=== PATIENT | female | born 1965 | race Caucasian/White ===

== ENCOUNTER 2018-12-01 09:30 | Outpatient (CLI) | payer OTHER | END 2018-12-01 09:31 | disposition home or self-care (01) | LOC: BICMAMMO 09:30 | PROVIDERS: ATTEND Family Medicine | DX: Z12.31 Encounter for screening mammogram for malignant neoplasm of breast (principal) | CPT/HCPCS: 77063; 77067 ==

== ENCOUNTER 2019-01-24 06:58 | Day surgery (SDC) | payer OTHER ==
[2019-01-23 10:31] VITALS: BMI 36.6
--- NOTE | 2019-01-23 13:47 | HP ---
HISTORY OF PRESENT ILLNESS: Ms. Tracy Ackerman is a very pleasant 53-year-old female comes with a colonoscopy for colon cancer screening. The patient has no specific GI symptom. There is no family history of colon cancer. She is adopted and she does not have any family history. ALLERGIES: NONE. SOCIAL HISTORY: The patient smokes. She also drinks alcohol socially. MEDICAL ILLNESSES: 1. Obesity. 2. Hysterectomy. PHYSICAL EXAMINATION: VITAL SIGNS: Her weight is 228 pounds. Pulse is 72, blood pressure is 140/94. HEENT: Conjunctivae clear. NECK: Supple. No adenitis or thyromegaly noted. CARDIOVASCULAR: First and second heart sounds normal. LUNGS: Clear to auscultation. ABDOMEN: Soft. No organomegaly. No tenderness. No masses. ADMITTING DIAGNOSIS: A 53-year-old female undergoing colonoscopy for colon cancer screening. Job ID: [id number]
[2019-01-24] MEDS ORDERED: PROPOFOL 200 MG/20 ML VIAL ONE (12:54)
--- NOTE | 2019-01-24 14:33 | OP ---
DATE OF PROCEDURE: 01/24/2019 PREOPERATIVE DIAGNOSIS: A 53-year-old female undergoing colonoscopy for colon cancer screening. POSTOPERATIVE DIAGNOSES: 1. Diffuse colonic diverticular disease from sigmoid colon all the way to the hepatic flexure, ascending colon. 2. Hemorrhoids. DESCRIPTION OF PROCEDURE: The patient was placed on her left lateral position and was given sedation by Anesthesia Department. A rectal exam was done before the scope was advanced into the rectum. No lesions felt on rectal exam. A Pentax video colonoscope was introduced into the rectum and advanced all the way into the cecum. The patient's exam was very difficult because of the constant coughing and gagging during the procedure. Also, she had some retained stool especially in the right colon also. The mucosa appears normal throughout the colon with normal vascular pattern. In the appendiceal orifice, ileocecal valve, and cecum, no pathology seen. Withdrawn from the cecum to the ascending colon, no pathology. She had diverticula just past the hepatic flexure, transverse colon, splenic flexure, descending colon, sigmoid colon. The retroflexion of scope in the rectum showed hemorrhoids. DISCHARGE PLANNING: This is a 53-year-old female, who came for a colonoscopy for colon cancer screening. The colonoscopy showed diffuse colonic diverticular disease and hemorrhoids. DISCHARGE RECOMMENDATIONS: 1. High-fiber diet. 2. Metamucil once a day. 3. She is advised to call me if she does have abdominal pain, hematochezia. 4. In the absence of any above symptoms, she will come back to me in 2 weeks. 5. Repeat colonoscopy in 10 years. Job ID: [id number]
== END 2019-01-24 10:15 | disposition home or self-care (01) ==
LOC: SDC 06:58
PROVIDERS: ATTEND Internal Medicine Gastroenterology
PROC: 0DJD8ZZ Inspection of Lower Intestinal Tract, Via Natural or Artificial Opening Endoscopic (ICD-10-PCS; principal; 2019-01-24)
DX: Z12.11 Encounter for screening for malignant neoplasm of colon (principal); K57.30 Diverticulosis of large intestine without perforation or abscess without bleeding; K64.9 Unspecified hemorrhoids; E66.9 Obesity, unspecified; Z68.36 Body mass index [BMI] 36.0-36.9, adult; Z90.710 Acquired absence of both cervix and uterus
CPT/HCPCS: J2704

== ENCOUNTER 2019-05-23 13:48 | Emergency (ER) | payer OTHER, SELFPAY ==
[2019-05-23] MEDS ORDERED: HYDROcodone/Acetaminophen 5/325 mg Tablet ONE (14:55)
--- NOTE | 2019-05-23 16:27 | CT ---
CT LUMBAR SPINE: Date: 05/23/19 PROVIDED CLINICAL HISTORY: Back pain. FINDINGS: Five lumbar-type vertebral bodies are present. Lumbar alignment appears normal. Vertebral body height s appear preserved. No evidence for fracture or other acute osseous abnormality. There is a broad based disc bulge and bilateral facet arthritis at L5-S1. This produces at least mode rate if not severe chronic left foraminal narrowing. There is paucity of fat within the left neural f oramen suggesting nerve root edema. No additional significant central canal or foraminal narrowing is apparent by CT. Scattered vascular calcifications are seen. IMPRESSION: Moderate-severe foraminal narrowing on the left at L5-S1 with evidence for impingement on the exiting left L5 nerve root. POS: OFF
== END 2019-05-23 15:25 | disposition home or self-care (01) ==
LOC: ERS 13:48
DX: M54.42 Lumbago with sciatica, left side (principal); E66.9 Obesity, unspecified; F17.210 Nicotine dependence, cigarettes, uncomplicated
CPT/HCPCS: 72131

== ENCOUNTER 2019-12-09 11:56 | Observation (INO) | payer OTHER, SELFPAY ==
[2019-12-09 12:43] LABS: #Eosinphils 0.2 thou/uL (0.0-0.7); #Lymphocytes 1.7 thou/uL (1.20-3.40); #Monocytes 0.5 thou/uL (0.11-0.59); #Neutrophils 5.6 thou/uL (1.40-6.50); %Basophils 0.6 % (0.0-1.0); %Eosinophils 1.9 % (0.0-10.0); %Monocytes 6.1 % (0.0-10.0); %Neutrophils 70.3 % (42.0-75.0); Hemoglobin 13.9 g/dL (12.0-16.0); Mean Corpuscular HGB CONC 34.1 g/dL (32.0-36.0); Mean Corpuscular Hemoglobin 33.5 pg (27.0-31.0); Mean Corpuscular Volume 98.4 fL (78.0-98.0); Mean Platelet Volume 8.1 fL (7.4-10.4); Platelet Count 207 thou/uL (130-400); RBC Distribution Width 13.1 % (11.5-14.5); Red Blood Cell (RBC) Count 4.16 mill/uL (4.20-5.40)
[2019-12-09 13:05] LABS: ALT (SGPT) 19 U/L (8-55); AST (SGOT) 18 U/L (5-34); Albumin 4.3 g/dL (3.5-5.0); Alkaline Phosphatase 94 U/L (40-110); Anion Gap 12 mmol/L (10-20); BUN (Urea Nitrogen) 21 mg/dL (9.8-20.1); Bilirubin, Total 0.2 mg/dL (0.2-1.2); CK (CPK) 200 U/L (29-168); Calc. Creatinine Clearance 0 mL/min (70-130); Calcium 9.4 mg/dL (7.8-10.44); Carbon Dioxide 28 mmol/L (22-29); Chloride 102 mmol/L (98-107); Estimated GFR-MDRD 81; Globulin 2.7 g/dL (2.4-3.5); Glucose 93 mg/dL (70-105); Potassium 4.1 mmol/L (3.5-5.1); Sodium 138 mmol/L (136-145)
--- NOTE | 2019-12-09 13:44 | RAD ---
Exam: Chest one view portable: HISTORY: Cough shortness of breath COMPARISON: 12/31/2014 FINDINGS: Perihilar linear and interstitial increased markings noted bilaterally concerning for some interstiti al edema. Borderline heart size. No confluent lobar pneumonia. IMPRESSION: Evidence for bilateral vascular congestion with some increased linear and interstitial opacity change s particularly in the perihilar regions more prominent than on prior study. Interstitial edema is favored over pneumonia or pneumonitis.
--- NOTE | 2019-12-09 14:26 | PDOC.FPRHP ---
- History of Present Illness Chief Complaint: Fatigue, Dyspnea on Exertion History of Present Illness: Pt is a 54 yo female with significant PMH who's chief complaint was dyspnea on exertion, RUQ pain. She notes being seen in the clinic yesterday for bright red blood per rectum and RUQ pain. Dr. Martinez performed a LORETTA in clinic revealing internal hemorrhoids. Her RUQ pain is intermittent for the last couple of months and is not associated with eating. Yesterday she had high blood pressure and was given an anti-hypertensive then told to monitor her BP' s. She checked today and they were elevated. Due to her recent visit and feeling "not herself" today she decided to come to the emergency department. On questioning she states she had R chest pain, sharp in nature, intermittent for the last couple of months. When asked about dyspnea on exertion she stated she can walk the same distance before her symptoms started. [facility] ED Course: The patient was seen in the ED and given 325mg aspirin - Allergies/Adverse Reactions Allergies Allergy/AdvReac Type Severity Reaction Status Date / Time No Known Allergies Allergy Verified 12/09/19 17:10 - Home Medications Medication Instructions Recorded Confirmed Type Aspirin 325 mg PO DAILY 12/09/19 12/09/19 History - History PMHx: Endometriosis, Internal hemorrhoids, HLD, elevated BP without a diagnosis of HTN PSHx: Hysterectomy, foot surgery, abdominal laparoscopy FHx: Adopted Social: Smokes 1/2 ppd for 30 years, drinks occassionally, no heavy drinking. Denies drug use PCP: Dr. Quiles - Review of Systems General: reports: fatigue. denies: fever/chills Eyes: denies: eye pain, vision changes ENT: denies: nasal congestion, rhinorrhea Respiratory: reports: shortness of breath. denies: cough Cardiovascular: reports: chest pain, palpitation Gastrointestinal: reports: abdominal pain, GI bleeding. denies: diarrhea, constipation Genitourinary: denies: incontinence, dysuria Skin: denies: rashes, itching Musculoskeletal: denies: pain, swelling Neurological: denies: numbness, weakness Psychological: denies: anxiety, depression - Vital signs BP: 176/114 HR: 91 RR: 18 Tmax: 98.2 Pox: 97% on RA Wt: 99.8kg - Physical Exam Constitutional: NAD, awake, alert and oriented HEENT: PERRLA, EOMI Neck: trachea midline, no JVD Chest: no-tender to palpation, no lesions Heart: RRR, normal S1/S2, no edema Lungs: CTAB, no respiratory distress, good air movement Abdomen: soft, non-tender, bowel sounds present Musculoskeletal: normal tone, ROM grossly normal Neurological: no focal deficit, CN II-XII intact Skin: no rash/lesions, capillary refill <2 seconds Heme/Lymphatic: no purpura, no petechia Psychiatric: normal mood and affect, intact recent and remote memory FMR H&P: Results - Labs Result Diagrams: 12/09/19 12:33 12/09/19 12:33 Lab results: WBC 8.0 thou/uL (4.8-10.8) 12/09/19 12:33 Hgb 13.9 g/dL (12.0-16.0) 12/09/19 12:33 Hct 40.9 % (36.0-47.0) 12/09/19 12:33 MCV 98.4 fL (78.0-98.0) H 12/09/19 12:33 Plt Count 207 thou/uL (130-400) 12/09/19 12:33 Neutrophils % 70.3 % (42.0-75.0) 12/09/19 12:33 Sodium 138 mmol/L (136-145) 12/09/19 12:33 Potassium 4.1 mmol/L (3.5-5.1) 12/09/19 12:33 Chloride 102 mmol/L (98-107) 12/09/19 12:33 Carbon Dioxide 28 mmol/L (22-29) 12/09/19 12:33 BUN 21 mg/dL (9.8-20.1) H 12/09/19 12:33 Creatinine 0.75 mg/dL (0.6-1.1) 12/09/19 12:33 Glucose 93 mg/dL (70-105) 12/09/19 12:33 Calcium 9.4 mg/dL (7.8-10.44) 12/09/19 12:33 Total Bilirubin 0.2 mg/dL (0.2-1.2) 12/09/19 12:33 AST 18 U/L (5-34) 12/09/19 12:33 ALT 19 U/L (8-55) 12/09/19 12:33 Alkaline Phosphatase 94 U/L (40-110) 12/09/19 12:33 Creatine Kinase 200 U/L (29-168) H 12/09/19 12:33 B-Natriuretic Peptide 43.6 pg/mL (0-100) 12/09/19 12:30 Serum Total Protein 7.0 g/dL (6.0-8.3) 12/09/19 12:33 Albumin 4.3 g/dL (3.5-5.0) 12/09/19 12:33 - EKG Interpretation EKG: NSR, no ST changes, T wave inversions in v1/v2 - Radiology Interpretation Chest x-ray Status: image reviewed by me Additional comment: revealed pulmonary vascular congestion FMR H&P: A/P - Problem List (1) Hypertensive urgency Current Visit: Yes Status: Acute Code(s): I16.0 - HYPERTENSIVE URGENCY (2) Pulmonary congestion Current Visit: Yes Status: Acute Code(s): R09.89 - OTH SYMPTOMS AND SIGNS INVOLVING THE CIRC AND RESP SYSTEMS (3) Dyspnea on exertion Current Visit: Yes Status: Acute Code(s): R06.09 - OTHER FORMS OF DYSPNEA (4) RUQ pain Current Visit: Yes Status: Acute Code(s): R10.11 - RIGHT UPPER QUADRANT PAIN (5) Hemorrhoid Current Visit: Yes Status: Acute Code(s): K64.9 - UNSPECIFIED HEMORRHOIDS (6) Atypical chest pain Current Visit: Yes Status: Acute Code(s): R07.89 - OTHER CHEST PAIN - Plan Pt is a 54 yo female here for: # HTN Urgency # Dyspnea on exertion/Pulmonary Congestion - trend trops - echo pending - control blood pressures - start lisinopril 10 mg, statin therapy, ASA daily - pending lipid panel # RUQ Pain - U/S pending # Atypical Chest Pain - likely MSK # Internal Hemorrhoid # Diverticulosis Likely source of GI bleed. Recently had a colonoscopy with diverticulosis - could be source. - monitor h/h in am # Hx of Endometriosis - s/p hysterectomy Fluids: SL Diet: HH VTE: Lovenox Code: Full Dispo: < 48 hr stay, tele obs FMR H&P: Upper Level - Pertinent history 54 y/o F PMHx endometriosis, HLD, obesity, tobacco abuse presents to the ED She reports she was seen yesterday in clinic and her blood pressure was elevated to the 190s-200s systolic. She went and bought a BP monitor. She took her BP today and it was 155 systolic so she came in to the ED. She reports pain between her shoulder blades this AM. It was a dull pain. She also reports RUQ abd pain and blood in her stool that started Wednesday and was BRBPR. Now the bleeding is more maroon today. She has an US scheduled for next week. She reports a sharp chest pain every once in a while as well as palpitations. She reports a little SOB today, but is still able to walk as much as normal. She does reports feeling fatigued today. She reports a colonoscopy this past May that was normal. She thinks they may have mentioned diverticula - Pertinent findings Vitals: BP: 176/114 HR: 91 RR: 18 Tmax: 98.2 Pox: 97% on RA Wt: 99.8kg PE: Gen - alert, oriented, NAD CV - no cyanosis or edema Abd - non-distended, NTTP CXR - bilateral vascular congestion, likely interstitial edema - Plan Date/Time: 12/09/19 1426 I, Patricia Clay MD, PGY-3, have evaluated this patient and agree with findings/ plan as outlined by business management intern resident. Pertinent changes/additions are listed here. Hypertensive Urgency Pt presented with BP's in 190s-200s. She has not been on antihypertensives in the past. -Obs on tele -Start on lisinopril -Check FLP and start atorvastatin -Start aspirin -Trend trops Pulmonary Edema -Will get Echo -BNP was normal and no peripheral edema RUQ pain -Check RUQ US Internal Hemorrhoids Likely cause of GI bleed, but could also be diverticulosis. Not actively bleeding at this time. -Recommend continued outpt f/u and workup Endometriosis s/p hysterectomy HLD -Check FLP and start atorvastatin Dispo: Obs on tele LOS: < 48 hours
[2019-12-09] MEDS ORDERED: Lisinopril 10 MG TAB PO SCH (15:58)
[2019-12-09 16:05] LABS: Troponin I 0.022 ng/mL (< 0.028)
[2019-12-09] MEDS ORDERED: Aspirin 325 mg Enteric Coated Tablet PO SCH (16:15)
[2019-12-09 17:13] VITALS: BMI 37.3
[2019-12-09 18:57] LABS: Troponin I Less than 0.010 ng/mL (< 0.028)
[2019-12-09] MEDS ORDERED: Acetaminophen 325 MG TAB PO PRN (19:28)
[2019-12-09] MEDS: Atorvastatin Calcium 40 MG TAB PO SCH (20:40)
[2019-12-09] MEDS ORDERED: Acetaminophen 325 MG/10.15 ML UDCUP PO PRN (21:57)
[2019-12-09] MEDS ORDERED: Ibuprofen 600 MG TAB PO PRN (21:57)
[2019-12-09] MEDS ORDERED: Acetaminophen 500 MG TAB PO PRN (22:57)
--- NOTE | 2019-12-09 23:47 | HP ---
I have discussed the case with Dr. Winter. I have examined the patient. I agree with Dr. Winter's assessment and plan. HISTORY OF PRESENT ILLNESS: Briefly, Ms. Ackerman is a 54-year-old white female patient who is a heavy smoker, at least 40-pack year and has a history of intermittent hypertension for which she has not taken medications. She was seen in the clinic on Wednesday with a systolic blood pressure of 190. She was instructed to get a home recorder which she did. She went to work today and started "feeling funny." She was having some discomfort just right of the midline on her right shoulder posteriorly. She presented to the ER for evaluation. Her blood pressure in the ER was initially 176/114. Her heart rate was 90, respirations 18, her room air pulse ox was 97%. She denied any chest pain, although she did have some dyspnea on exertion intermittently during the last 4 days. PHYSICAL EXAMINATION: EAR, NOSE, AND THROAT: No erythema or exudate. NECK: Supple. CARDIAC: Her heart rhythm is regular. There is an S4 apical gallop. No murmur or rub noted. LUNGS: Diminished, but clear without rhonchi or wheezes. She is in no respiratory distress. ABDOMEN: Flat and soft without guarding or rebound. NEUROLOGIC: No focal deficits. LABORATORY DATA: CBC; white count is 8000, hemoglobin 13.9, hematocrit 40.9 with an MCV of 98. Chemistry; sodium 138, potassium 4.1, chloride 102, bicarb 28, BUN 21, and creatinine 0.75 with GFR of 81. Her troponins are negative with less than 0.01 and 4-6 hours later 0.022. Her BNP is 43. EKG shows no acute ischemic changes. ASSESSMENT: 1. Uncontrolled asymptomatic hypertension. 2. Heavy smoker with likely chronic obstructive pulmonary disease. 3. Dyspnea on exertion, new onset, need to consider multiple etiologies including heart failure and chronic obstructive pulmonary disease. PLAN: Admit. Workup with echo. Trend troponins. Possible stress test depending on results of echo and proceed. Job ID: [id number]
[2019-12-10 05:12] LABS: Anion Gap 10 mmol/L (10-20); BUN (Urea Nitrogen) 18 mg/dL (9.8-20.1); Calc. Creatinine Clearance 163 mL/min (70-130); Calcium 9.2 mg/dL (7.8-10.44); Carbon Dioxide 28 mmol/L (22-29); Cardiac Risk 3.8 (Less than 4.5); Chloride 105 mmol/L (98-107); Cholesterol 192 mg/dl (< 200 Desired); Estimated GFR-MDRD Greater than 90; Glucose 91 mg/dL (70-105); HDL Cholesterol 50 mg/dL (>60 Neg Risk); LDL Cholesterol, Calculated 121 mg/dL; Potassium 4.4 mmol/L (3.5-5.1); Sodium 139 mmol/L (136-145); Triglycerides 104 mg/dL (Less than 150)
--- NOTE | 2019-12-10 05:27 | PDOC.FM ---
- Subjective Subjective: Patient states that she had one episode of chest "discomfort" overnight, describes this sensation as "bothersome" but denies pain. Denies any nausea/ vomiting, heartburn, or abdominal pain. Patient thinks overall she is feeling much better. Her headache has resolved. - Objective MAR Reviewed: Yes Vital Signs & Weight: Vital Signs (12 hours) Temp Pulse Resp BP BP Pulse Ox 12/09/19 23:19 98.2 F 68 16 143/71 H 95 12/09/19 20:55 96 12/09/19 19:15 98.7 F 80 16 141/65 H 141/65 H 96 Weight Weight 101.877 kg I&O: 12/08/19 12/09/19 12/10/19 06:59 06:59 06:59 Intake Total 790 Output Total 650 Balance 140 Result Diagrams: 12/09/19 12:33 12/10/19 04:25 Phys Exam - Physical Examination Constitutional: NAD HEENT: moist MMs Neck: no JVD, supple, full ROM Respiratory: no wheezing, no rhonchi, clear to auscultation bilateral Cardiovascular: RRR, no significant murmur Gastrointestinal: soft, non-tender, positive bowel sounds Musculoskeletal: no edema, pulses present Neurological: normal sensation, moves all 4 limbs Psychiatric: normal affect, A&O x 3 Skin: no rash Dx/Plan (1) Atypical chest pain Code(s): R07.89 - OTHER CHEST PAIN Status: Acute (2) Dyspnea on exertion Code(s): R06.09 - OTHER FORMS OF DYSPNEA Status: Acute (3) Hemorrhoid Code(s): K64.9 - UNSPECIFIED HEMORRHOIDS Status: Acute (4) Hypertensive urgency Code(s): I16.0 - HYPERTENSIVE URGENCY Status: Acute (5) Pulmonary congestion Code(s): R09.89 - OTH SYMPTOMS AND SIGNS INVOLVING THE CIRC AND RESP SYSTEMS Status: Acute (6) RUQ pain Code(s): R10.11 - RIGHT UPPER QUADRANT PAIN Status: Acute - Plan Plan: Pt is a 54 yo female here with atypical chest pain is admitted for: # HTN Urgency # Dyspnea on exertion/Pulmonary Congestion - Trops: <.01 - .02 - <.01 - Echo pending - start Lisinopril 10 mg, Atorvastatin 40 mg, ASA daily - FLP: total chol 192, HDL 50, LDL 121 # RUQ Pain - U/S pending # Atypical Chest Pain - likely MSK in origin # Internal Hemorrhoid # Diverticulosis - Likely source of GI bleed. Recently had a colonoscopy with diverticulosis - could be source. - monitor h/h in am # Tobacco Abuse - 40+ pk year smoker - consider COPD changes # Hx of Endometriosis - s/p hysterectomy Fluids: SL Diet: HH VTE: Lovenox Code: Full Dispo: Stable, admitted to observation on telemetry unit. RUQ U/S and ECHO pending. Anticipate discharge in < 48 hr.
[2019-12-10] MEDS: Aspirin 325 mg Enteric Coated Tablet PO SCH (07:56)
--- NOTE | 2019-12-10 08:24 | ULT ---
RIGHT UPPER QUADRANT ULTRASOUND: HISTORY: Right upper quadrant pain. FINDINGS: There is somewhat coarse liver echogenicity, evidence for some fatty change. No evidence of gallstone s, wall thickening, edema or pericholecystic fluid. The common bile duct is 0.6 cm. The visualized pa ncreas and right kidney are unremarkable. Negative Chua sign. IMPRESSION: Minimally coarse liver echogenicity. No evidence of gallstones. Borderline sized common bile duct at 0.6 cm. POS: [facility]
[2019-12-10] MEDS ORDERED: Lisinopril 10 MG TAB PO SCH ×2 (09:00→23:45)
[2019-12-10] MEDS ORDERED: hydrALAZINE 20 MG/ML VIAL SLOW IVP SCH (12:15)
[2019-12-10] MEDS: Enoxaparin Sodium 40 MG/0.4 ML SYRINGE SC SCH (13:08)
--- NOTE | 2019-12-10 17:59 | PRG ---
DATE OF SERVICE: 12/10/2019 ADDENDUM: This is an addendum to the note of Dr. Itzel Mata. Ms. Ackerman looks and feels better this morning. Her right upper quadrant ultrasound did reveal fatty liver. Her chest x-ray as stated yesterday was consistent with mild pulmonary edema. We are still awaiting the reports of echocardiogram. In the event, clinically she is improved. Possible Cardiology consult to follow if echo abnormal. Job ID: [id number]
[2019-12-10] MEDS: Atorvastatin Calcium 40 MG TAB PO SCH (20:51)
[2019-12-11 04:54] LABS: Anion Gap 12 mmol/L (10-20); BUN (Urea Nitrogen) 14 mg/dL (9.8-20.1); Calc. Creatinine Clearance 154 mL/min (70-130); Calcium 9.4 mg/dL (7.8-10.44); Carbon Dioxide 27 mmol/L (22-29); Chloride 105 mmol/L (98-107); Estimated GFR-MDRD Greater than 90; Glucose 101 mg/dL (70-105); Potassium 4.1 mmol/L (3.5-5.1); Sodium 140 mmol/L (136-145)
--- NOTE | 2019-12-11 05:27 | PDOC.FM ---
- Subjective Subjective: Patient reports that she is doing well. Denies any chest discomfort overnight. Denies any hematochezia/melena since wednesday. Discussed echo results. - Objective Vital Signs & Weight: Vital Signs (12 hours) Temp Pulse Resp BP Pulse Ox 12/10/19 23:40 98.0 F 71 16 187/84 H 94 L 12/10/19 20:48 98.1 F 72 16 153/80 H 96 Weight Weight 100.425 kg I&O: 12/09/19 12/10/19 12/11/19 06:59 06:59 06:59 Intake Total 790 720 Output Total 1150 500 Balance -360 220 Result Diagrams: 12/09/19 12:33 12/11/19 04:19 EKG Reviewed by me: Yes (sinus-sinus tach, 60s-113) Phys Exam - Physical Examination Constitutional: NAD HEENT: moist MMs, sclera anicteric Neck: supple, full ROM Respiratory: no wheezing, clear to auscultation bilateral Cardiovascular: RRR, no significant murmur Gastrointestinal: soft, non-tender Musculoskeletal: no edema, pulses present Neurological: non-focal, moves all 4 limbs Lymphatic: no nodes Psychiatric: normal affect, A&O x 3 Skin: no rash, normal turgor Dx/Plan (1) Atypical chest pain Code(s): R07.89 - OTHER CHEST PAIN Status: Acute (2) Hypertensive urgency Code(s): I16.0 - HYPERTENSIVE URGENCY Status: Acute (3) RUQ pain Code(s): R10.11 - RIGHT UPPER QUADRANT PAIN Status: Acute (4) Hemorrhoid Code(s): K64.9 - UNSPECIFIED HEMORRHOIDS Status: Chronic (5) Tobacco abuse Code(s): Z72.0 - TOBACCO USE Status: Chronic (6) Diverticulosis Code(s): K57.90 - DVRTCLOS OF INTEST, PART UNSP, W/O PERF OR ABSCESS W/O BLEED Status: Chronic - Plan Plan: Pt is a 54F admitted to obs for atypical chest pain # Atypical Chest Pain -trop neg x 3 - likely MSK in origin - echo: 50-55%, left ventricle slightly elevated in size, left atrium moderately to severely dilated, trace mitral and tricuspid regurgitation # HTN Urgency # Dyspnea on exertion/Pulmonary Congestion - Trops: <.01 - .02 - <.01 - Echo: see above - lisinopril increased to 20mg qd today; continue Atorvastatin 40 mg, ASA daily - FLP: total chol 192, HDL 50, LDL 121 # RUQ Pain - U/S neg # Internal Hemorrhoid # Diverticulosis - Likely source of GI bleed. Recently had a colonoscopy with diverticulosis - could be source. - h/h stable - no reported hematochezia/melena since wednesday # Tobacco Abuse - 40+ pk year smoker - encourage cessation # Hx of Endometriosis - s/p hysterectomy Fluids: SL Diet: HH VTE: Lovenox Code: Full Dispo: Stable, admitted to observation on telemetry unit. As echo negative, trops negative, will likely d/c today Addendum - Attending - Attending Attestation Date/Time: 12/11/19 9227 I personally evaluated the patient and discussed the management with Dr. Mantilla I agree with the History, Examination, Assessment and Plan documented above with any addition or exceptions noted below. Patient counseled tobacco cessation encourage close outpt f/u and will need outpatient risk stratification for ASCAD with Cardiology
[2019-12-11] MEDS: Aspirin 325 mg Enteric Coated Tablet PO SCH (07:48)
[2019-12-11] MEDS: Enoxaparin Sodium 40 MG/0.4 ML SYRINGE SC SCH (07:48)
[2019-12-11] MEDS ORDERED: Lisinopril 20 MG TAB PO SCH (09:00)
[2019-12-11 12:09] VITALS: BP 137/64; TEMP 97.9
--- NOTE | 2019-12-12 06:31 | DIS ---
DATE OF ADMISSION: 12/09/2019 DATE OF DISCHARGE: 12/11/2019 ADMITTING RESIDENT: Saulo Winter DO ADMITTING PHYSICIAN: Arslan Brenner MD DISCHARGE RESIDENT: Delmy Mantilla MD DISCHARGE ATTENDING: Blaze Jones MD. CONSULTATIONS: None. PROCEDURES: None. IMAGING: EF of 50% to 55%. Left ventricular size is mildly increased. [id number] dilated left atrium. No evidence of mitral valve stenosis. Trace mitral regurgitation. Structurally normal aortic valve with no significant stenosis or regurgitation. Trace tricuspid regurgitation. PRIMARY DIAGNOSES: Atypical chest pain versus exertional dyspnea, hypertensive urgency, right upper quadrant pain. SECONDARY DIAGNOSES: Internal hemorrhoids, diverticulosis, tobacco use, history of endometriosis. DISCHARGE MEDICATIONS: 1. Atorvastatin 40 mg p.o. t.i.d. x30 tablets. 2. Lisinopril 20 mg p.o. b.i.d. x30 tablets. DISCONTINUED MEDICATIONS: 1. Aspirin daily. 2. Hydralazine 5 mg IVP p.r.n. 3. Ibuprofen p.r.n. 4. Lisinopril 10mg daily. HISTORY OF PRESENT ILLNESS/HOSPITAL COURSE: The patient is a 54-year-old female who had a past medical history of hyperlipidemia, internal hemorrhoids, diverticulosis, endometriosis, presented to the ER with a chief complaint of dyspnea on exertion , chest discomfort, right upper quadrant pain. When she presented to the ER, her presenting blood pressure was 176/114. Lisinopril was started for her hypertensive urgency. Her troponins were trended, which were negative x3 and she was started on a statin. She underwent an echocardiogram, see above. On the day of discharge, the patient had denied any further chest discomfort and she remained in sinus rhythm throughout her time on telemetry. Her echocardiogram did not reveal any systolic or diastolic heart failure. We recommended to patient that she follow up outpatient with her PCP for an outpatient stress test. For her right upper quadrant pain, an abdominal ultrasound was performed that demonstrated minimally coarse liver echogenicity. No evidence of gallstones. Borderline sized common bile duct at 0.6 cm. The patient recently had a colonoscopy that demonstrated diverticulosis and a recent digital exam in clinic that demonstrated internal hemorrhoids, which were likely the cause of her bright red blood per rectum. She did not have any reported bright red blood per rectum since this past Wednesday. The patient is a tobacco user with reported a half pack per day smoking use. The patient was counseled on the day of discharge for smoking cessation, and she reported that she is ready. She was counseled on taking up a nicotine patch at the store and utilizing nicotine gum as needed. DISPOSITION: Stable. DISCHARGE INSTRUCTIONS: 1. Location: Home. 2. Diet: Heart healthy. 3. Activity: As tolerated. 4. Follow up with primary care provider at [facility] within 1 week. 5. The patient was recommended to request an outpatient stress test on followup and further counseling on tobacco cessation as needed. Job ID: [id number] [facility]ITAL[facility]
== END 2019-12-11 12:55 | disposition home or self-care (01) ==
LOC: ERS 11:56 → 2SW 16:32
PROVIDERS: ADMIT Family Medicine; ATTEND Family Medicine
DX: I16.0 Hypertensive urgency (principal); K76.0 Fatty (change of) liver, not elsewhere classified; K64.8 Other hemorrhoids; K57.90 Diverticulosis of intestine, part unspecified, without perforation or abscess without bleeding; F17.210 Nicotine dependence, cigarettes, uncomplicated; I10 Essential (primary) hypertension; E78.5 Hyperlipidemia, unspecified; J81.1 Chronic pulmonary edema; Z79.82 Long term (current) use of aspirin; Z79.899 Other long term (current) drug therapy
CPT/HCPCS: 36415; 71045; 76705; 80048; 80053; 80061; 82550; 83880; 84484; 85025; 85379; 93005; 93306; 94760; 96372; 96374; G0378; J0360; J1650

== ENCOUNTER 2020-07-05 10:30 | Emergency (ER) | payer OTHER ==
[~2020-07-05 10:30] MED LIST: Iopamidol-370 76% 500 ML 1 ML ONE
[2020-07-05 10:57] LABS: #Eosinphils 0.1 thou/uL (0.0-0.7); #Lymphocytes 1.1 thou/uL (1.20-3.40); #Neutrophils 8.3 thou/uL (1.40-6.50); %Basophils 0.4 % (0.0-1.0); %Eosinophils 1.3 % (0.0-10.0); %Lymphocytes 10.6 % (21.0-51.0); %Monocytes 9.2 % (0.0-10.0); %Neutrophils 78.5 % (42.0-75.0); Hemoglobin 11.5 g/dL (12.0-16.0); Mean Corpuscular HGB CONC 30.4 g/dL (32.0-36.0); Mean Corpuscular Hemoglobin 26.6 pg (27.0-31.0); Mean Corpuscular Volume 87.5 fL (78.0-98.0); Mean Platelet Volume 7.5 fL (7.4-10.4); Platelet Count 381 thou/uL (130-400); RBC Distribution Width 15.5 % (11.5-14.5); Red Blood Cell (RBC) Count 4.34 mill/uL (4.20-5.40); White Blood Cell (WBC) Count 10.6 thou/uL (4.8-10.8)
[2020-07-05 11:18] LABS: ALT (SGPT) 12 U/L (8-55); AST (SGOT) 10 U/L (5-34); Albumin 3.7 g/dL (3.5-5.0); Alkaline Phosphatase 84 U/L (40-110); Anion Gap 16 mmol/L (10-20); BUN (Urea Nitrogen) 12 mg/dL (9.8-20.1); Bilirubin, Total Less than 0.2 mg/dL (0.2-1.2); Calc. Creatinine Clearance 0 mL/min (70-130); Calcium 9.3 mg/dL (7.8-10.44); Carbon Dioxide 24 mmol/L (22-29); Chloride 100 mmol/L (98-107); Estimated GFR-MDRD 86; Globulin 3.1 g/dL (2.4-3.5); Glucose 118 mg/dL (70-105); Potassium 4.2 mmol/L (3.5-5.1); Protein, Total 6.8 g/dL (6.0-8.3); Sodium 136 mmol/L (136-145)
[2020-07-05 12:21] LABS: PTT 29.8 sec (22.9-36.1)
[2020-07-05] MEDS ORDERED: Ondansetron PF 4 MG/2 ML Vial ONE (12:47)
--- NOTE | 2020-07-05 13:30 | CT ---
CT of theabdomen and pelvis: 07/05/2020 COMPARISON:03/20/2013 HISTORY:GI bleeding, pain TECHNIQUE: Serial axial CT imaging at5 mm intervals from thelung bases through pubic symphysis with I V contrast. Coronal and sagittal reformatted imaging obtained. Findings:There are nonspecific increased linear interstitial densities noted within the imaged portio ns of the left lower lobe with probable associated mild bronchiectasis suggesting chronic interstitial disease. No free intraperitoneal air is noted. There is minimal prominence of the intrahepatic biliary structures. Liver, gallbladder, spleen, pancr eas, adrenal glands, and kidneys otherwise unremarkable. There is extensive abnormal wall thickening of the colon with prominent pericolonic fat stranding/inf lammatory change involving the colon from the level of the mid descending colon through the level of the rectum. No evidence for bowel obstruction. Small sliding-type hiatal hernia present. Multifocal atherosclerotic calcification of the infrarenal abdominal aorta noted. The celiac axis, raines perior mesenteric artery, and inferior mesenteric artery are patent. No lymphadenopathy in the abdomen/pelvis. No acute osseous abnormality. There is disc space narrowing with degenerative endplate change and fac et hypertrophy at the lumbosacral junction. Impression:Prominent pericolonic fat stranding and diffuse wall thickening of the colon from the leve l of the mid descending colon through the rectum, evidence of nonspecific colitis. This could be on the basis of diverticulitis, inflammatory bowel disease, diffuse infectious colitis, or less likely, ischemic colitis. GI consultation advised.
== END 2020-07-05 14:26 | disposition home or self-care (01) ==
LOC: ERS 10:30
DX: K52.9 Noninfective gastroenteritis and colitis, unspecified (principal); F17.210 Nicotine dependence, cigarettes, uncomplicated
CPT/HCPCS: 36415; 74177; 80053; 82274; 83630; 83690; 85025; 85610; 85730; 87045; 87046; 87324; 87328; 87329; 87427; 87449; 96374; J2405; Q9967

== ENCOUNTER 2022-08-14 14:20 | Inpatient (IN) | payer OTHER ==
[2022-08-14] MEDS ORDERED: Calcium Carbonate 500 MG ChewTAB PO PRN (15:46)
[2022-08-14] MEDS ORDERED: Albuterol Sulfate 2.5 mg/3 ml Neb NEB PRN (15:49)
[2022-08-14 16:05] VITALS: BMI 38.1
[2022-08-14] MEDS: Benzonatate 100 MG CAP PO PRN (16:46)
[2022-08-14] MEDS: Acetaminophen 325 MG TAB PO PRN (16:53)
[2022-08-14 17:42] LABS: ALT (SGPT) 19 U/L (8-55); AST (SGOT) 20 U/L (5-34); Albumin 4.2 g/dL (3.5-5.0); Alkaline Phosphatase 87 U/L (40-110); Anion Gap 11 mmol/L (10-20); BUN (Urea Nitrogen) 13 mg/dL (9.8-20.1); Bilirubin, Total 0.3 mg/dL (0.2-1.2); Calc. Creatinine Clearance 164 mL/min (70-130); Calcium 9.2 mg/dL (7.8-10.44); Carbon Dioxide 25 mmol/L (22-29); Chloride 106 mmol/L (98-107); Estimated GFR 104; Globulin 3.1 g/dL (2.4-3.5); Glucose 145 mg/dL (70-105); Potassium 4.2 mmol/L (3.5-5.1); Protein, Total 7.3 g/dL (6.0-8.3); Sodium 138 mmol/L (136-145)
[2022-08-14] MEDS: Albuterol Sulfate 2.5 mg/3 ml Neb NEB SCH ×2 (18:24→23:25)
[2022-08-14 18:25] LABS: Legionella Urinary Ag Negative (Negative); Strep pneumo Urine Ag NEGATIVE (NEGATIVE)
[2022-08-14] MEDS ORDERED: Ibuprofen 600 MG TAB PO PRN (19:34)
[2022-08-14] MEDS ORDERED: Loratadine 10 MG TAB PO SCH (19:45)
[2022-08-14] MEDS: GUAIFENESIN SF SOLN 200 MG/10 ML UDCUP PO PRN (20:15)
[2022-08-15] MEDS: Acetaminophen 325 MG TAB PO PRN ×3 (00:03→19:45)
[2022-08-15] MEDS: GUAIFENESIN SF SOLN 200 MG/10 ML UDCUP PO PRN (00:04)
[2022-08-15] MEDS: Benzonatate 100 MG CAP PO PRN ×2 (00:04→18:10)
[2022-08-15] MEDS: Albuterol Sulfate 2.5 mg/3 ml Neb NEB SCH ×2 (03:46→07:01)
[2022-08-15 06:11] LABS: #Lymphocytes 1.2 thou/uL (1.20-3.40); #Monocytes 0.7 thou/uL (0.11-0.59); #Neutrophils 8.4 thou/uL (1.40-6.50); %Basophils 0.2 % (0.0-1.0); %Eosinophils 0.2 % (0.0-10.0); %Lymphocytes 11.7 % (21.0-51.0); %Monocytes 6.8 % (0.0-10.0); %Neutrophils 81.1 % (42.0-75.0); Hemoglobin 13.2 g/dL (12.0-16.0); Mean Corpuscular HGB CONC 32.6 g/dL (32.0-36.0); Mean Corpuscular Hemoglobin 33.8 pg (27.0-31.0); Mean Platelet Volume 8.5 fL (7.4-10.4); Platelet Count 206 thou/uL (130-400); RBC Distribution Width 13.9 % (11.5-14.5); White Blood Cell (WBC) Count 10.4 thou/uL (4.8-10.8)
[2022-08-15 06:24] LABS: Anion Gap 10 mmol/L (10-20); BUN (Urea Nitrogen) 15 mg/dL (9.8-20.1); Calc. Creatinine Clearance 172 mL/min (70-130); Calcium 9.5 mg/dL (7.8-10.44); Carbon Dioxide 27 mmol/L (22-29); Chloride 106 mmol/L (98-107); Estimated GFR 105; Glucose 108 mg/dL (70-105); Potassium 4.9 mmol/L (3.5-5.1); Sodium 138 mmol/L (136-145)
[2022-08-15] MEDS: Loratadine 10 MG TAB PO SCH (08:29)
[2022-08-15] MEDS: Enoxaparin Sodium 40 MG/0.4 ML SYRINGE SC SCH (08:29)
[2022-08-15] MEDS: Lisinopril 5 MG TAB PO SCH (08:29)
[2022-08-15] MEDS ORDERED: guaiFENesin ER 600 MG TAB PO SCH (09:00)
[2022-08-15] MEDS ORDERED: Azithromycin 200 MG/5 ML Oral Suspension PO SCH ×2 (09:00)
[2022-08-15] MEDS ORDERED: Dextromethorphan Polistirex 30 MG/5 ML (89 ML BOTTLE) PO PRN (09:00)
[2022-08-15] MEDS ORDERED: predniSONE 20 MG TAB PO SCH (09:00)
[2022-08-15] MEDS ORDERED: methylPREDNISolone 4 mg Tablet PO SCH (09:15)
[2022-08-15] MEDS ORDERED: guaiFENesin ER 600 MG TAB PO PRN (09:28)
[2022-08-15] MEDS ORDERED: Azithromycin 250 MG TAB PO SCH (09:30)
[2022-08-15] MEDS ORDERED: Cepastat Lozenges 1 LOZ PO PRN (19:23)
[2022-08-15] MEDS: guaiFENesin/Codeine 200 mg/20 mg 10 ml Cup PO PRN (19:45)
[2022-08-16] MEDS: guaiFENesin/Codeine 200 mg/20 mg 10 ml Cup PO PRN ×4 (05:34→22:52)
[2022-08-16 06:30] LABS: #Basophils 0.1 thou/uL (0.0-0.2); #Lymphocytes 2.2 thou/uL (1.20-3.40); #Monocytes 0.7 thou/uL (0.11-0.59); #Neutrophils 7.5 thou/uL (1.40-6.50); %Basophils 0.6 % (0.0-1.0); %Eosinophils 0.4 % (0.0-10.0); %Lymphocytes 20.8 % (21.0-51.0); %Monocytes 6.8 % (0.0-10.0); %Neutrophils 71.3 % (42.0-75.0); Hemoglobin 13.1 g/dL (12.0-16.0); Mean Corpuscular HGB CONC 32.3 g/dL (32.0-36.0); Mean Platelet Volume 8.6 fL (7.4-10.4); Platelet Count 213 thou/uL (130-400); Red Blood Cell (RBC) Count 3.84 mill/uL (4.20-5.40); White Blood Cell (WBC) Count 10.6 thou/uL (4.8-10.8)
[2022-08-16 06:41] LABS: Anion Gap 13 mmol/L (10-20); BUN (Urea Nitrogen) 19 mg/dL (9.8-20.1); Calc. Creatinine Clearance 161 mL/min (70-130); Calcium 9.1 mg/dL (7.8-10.44); Carbon Dioxide 26 mmol/L (22-29); Chloride 105 mmol/L (98-107); Estimated GFR 104; Glucose 89 mg/dL (70-105); Potassium 4.4 mmol/L (3.5-5.1); Sodium 140 mmol/L (136-145)
[2022-08-16] MEDS: Loratadine 10 MG TAB PO SCH (08:26)
[2022-08-16] MEDS: Azithromycin 250 MG TAB PO SCH (08:29)
[2022-08-16] MEDS: Enoxaparin Sodium 40 MG/0.4 ML SYRINGE SC SCH (08:29)
[2022-08-16] MEDS ORDERED: Azithromycin 200 MG/5 ML Oral Suspension PO SCH (09:00)
[2022-08-16] MEDS ORDERED: Furosemide 20 MG TAB PO SCH (10:30)
[2022-08-16] MEDS: Lisinopril 5 MG TAB PO SCH (11:12)
[2022-08-16] MEDS ORDERED: Mometasone/Formoterol 60 PUFF AER INH SCH (18:30)
[2022-08-16] MEDS: Mometasone/Formoterol 60 PUFF AER INH SCH (18:47)
[2022-08-17] MEDS: guaiFENesin/Codeine 200 mg/20 mg 10 ml Cup PO PRN ×3 (05:34→23:30)
[2022-08-17 06:52] LABS: #Eosinphils 0.1 thou/uL (0.0-0.7); #Lymphocytes 2.3 thou/uL (1.20-3.40); #Monocytes 0.8 thou/uL (0.11-0.59); #Neutrophils 6.9 thou/uL (1.40-6.50); %Basophils 0.5 % (0.0-1.0); %Eosinophils 0.7 % (0.0-10.0); %Monocytes 8.3 % (0.0-10.0); %Neutrophils 67.6 % (42.0-75.0); Hemoglobin 12.9 g/dL (12.0-16.0); Mean Corpuscular HGB CONC 30.9 g/dL (32.0-36.0); Mean Corpuscular Hemoglobin 32.1 pg (27.0-31.0); Mean Platelet Volume 8.2 fL (7.4-10.4); Platelet Count 217 thou/uL (130-400); RBC Distribution Width 13.9 % (11.5-14.5); Red Blood Cell (RBC) Count 4.03 mill/uL (4.20-5.40); White Blood Cell (WBC) Count 10.2 thou/uL (4.8-10.8)
[2022-08-17 07:09] LABS: Anion Gap 9 mmol/L (10-20); BUN (Urea Nitrogen) 26 mg/dL (9.8-20.1); Calc. Creatinine Clearance 151 mL/min (70-130); Calcium 9.2 mg/dL (7.8-10.44); Carbon Dioxide 34 mmol/L (22-29); Chloride 102 mmol/L (98-107); Estimated GFR 102; Glucose 87 mg/dL (70-105); Potassium 4.3 mmol/L (3.5-5.1); Sodium 141 mmol/L (136-145)
[2022-08-17] MEDS: Mometasone/Formoterol 60 PUFF AER INH SCH ×2 (07:40→18:58)
[2022-08-17] MEDS: Enoxaparin Sodium 40 MG/0.4 ML SYRINGE SC SCH (07:52)
[2022-08-17] MEDS: Lisinopril 5 MG TAB PO SCH (07:52)
[2022-08-17] MEDS: Loratadine 10 MG TAB PO SCH (07:53)
[2022-08-17] MEDS: Azithromycin 250 MG TAB PO SCH (07:53)
[2022-08-17] MEDS: Benzonatate 100 MG CAP PO PRN (19:16)
[2022-08-17] MEDS: guaiFENesin ER 600 MG TAB PO SCH (21:01)
[2022-08-17 23:58] VITALS: TEMP 98
[2022-08-18 06:45] LABS: Anion Gap 11 mmol/L (10-20); BUN (Urea Nitrogen) 20 mg/dL (9.8-20.1); Calc. Creatinine Clearance 158 mL/min (70-130); Calcium 9.6 mg/dL (7.8-10.44); Carbon Dioxide 33 mmol/L (22-29); Chloride 101 mmol/L (98-107); Estimated GFR 103; Glucose 76 mg/dL (70-105); Potassium 4.7 mmol/L (3.5-5.1); Sodium 140 mmol/L (136-145)
[2022-08-18] MEDS: guaiFENesin/Codeine 200 mg/20 mg 10 ml Cup PO PRN (06:46)
[2022-08-18] MEDS ORDERED: Dextromethorphan Polistirex 30 MG/5 ML (89 ML BOTTLE) PO PRN (06:50)
[2022-08-18 06:55] LABS: Hemoglobin 13.6 g/dL (12.0-16.0); Red Blood Cell (RBC) Count 4.26 mill/uL (4.20-5.40); White Blood Cell (WBC) Count 11.6 thou/uL (4.8-10.8)
[2022-08-18 06:56] LABS: #Eosinphils 0.1 thou/uL (0.0-0.7); #Lymphocytes 2.3 thou/uL (1.20-3.40); #Monocytes 0.8 thou/uL (0.11-0.59); #Neutrophils 8.4 thou/uL (1.40-6.50); %Basophils 0.3 % (0.0-1.0); %Eosinophils 0.7 % (0.0-10.0); %Lymphocytes 19.4 % (21.0-51.0); %Monocytes 6.6 % (0.0-10.0); %Neutrophils 72.9 % (42.0-75.0); Mean Corpuscular HGB CONC 30.7 g/dL (32.0-36.0); Mean Platelet Volume 8.2 fL (7.4-10.4); Platelet Count 237 thou/uL (130-400); RBC Distribution Width 13.7 % (11.5-14.5)
[2022-08-18] MEDS: Mometasone/Formoterol 60 PUFF AER INH SCH (07:15)
[2022-08-18] MEDS: Enoxaparin Sodium 40 MG/0.4 ML SYRINGE SC SCH (08:45)
[2022-08-18] MEDS: Azithromycin 250 MG TAB PO SCH (08:45)
[2022-08-18] MEDS: Lisinopril 5 MG TAB PO SCH (08:45)
[2022-08-18] MEDS: guaiFENesin ER 600 MG TAB PO SCH (08:45)
[2022-08-18 08:46] VITALS: BP 148/66
[2022-08-18] MEDS: Loratadine 10 MG TAB PO SCH (08:46)
== END 2022-08-18 13:59 | disposition home or self-care (01) | DRG 871 ==
LOC: T4-A 14:54
PROVIDERS: ADMIT Family Medicine; ATTEND Family Medicine
DX: A41.89 Other specified sepsis (principal); J12.9 Viral pneumonia, unspecified; J96.01 Acute respiratory failure with hypoxia; J44.1 Chronic obstructive pulmonary disease with (acute) exacerbation; K51.90 Ulcerative colitis, unspecified, without complications; R10.32 Left lower quadrant pain; I10 Essential (primary) hypertension; F17.210 Nicotine dependence, cigarettes, uncomplicated; Z28.21 Immunization not carried out because of patient refusal; Z79.899 Other long term (current) drug therapy; Z90.710 Acquired absence of both cervix and uterus; Z98.49 Cataract extraction status, unspecified eye; Z98.890 Other specified postprocedural states; Z71.6 Tobacco abuse counseling
CPT/HCPCS: 36415; 71046; 80048; 80053; 84145; 85025; 87449; 87633; 87899; 94640; J1650; J7611; J7620

== ENCOUNTER 2022-11-03 19:42 | Inpatient (IN) | payer BC ==
[2022-11-03 20:16] LABS: #Basophils 0.1 thou/uL (0.0-0.2); #Eosinphils 0.2 thou/uL (0.0-0.7); #Lymphocytes 2.1 thou/uL (1.20-3.40); #Monocytes 0.7 thou/uL (0.11-0.59); #Neutrophils 16.1 thou/uL (1.40-6.50); %Basophils 0.5 % (0.0-1.0); %Eosinophils 1.1 % (0.0-10.0); %Lymphocytes 10.9 % (21.0-51.0); %Monocytes 3.5 % (0.0-10.0); %Neutrophils 83.9 % (42.0-75.0); Hemoglobin 12.9 g/dL (12.0-16.0); Mean Corpuscular HGB CONC 31.9 g/dL (32.0-36.0); Mean Corpuscular Hemoglobin 30.3 pg (27.0-31.0); Mean Corpuscular Volume 94.9 fl (78.0-98.0); Mean Platelet Volume 8.7 fL (7.4-10.4); Platelet Count 284 10x3/uL (130-400); RBC Distribution Width 16.7 % (11.5-14.5); Red Blood Cell (RBC) Count 4.25 mill/uL (4.20-5.40); White Blood Cell (WBC) Count 19.2 10x3/uL (4.8-10.8)
[2022-11-03 20:37] LABS: ALT (SGPT) 21 U/L (8-55); AST (SGOT) 28 U/L (5-34); Albumin 3.9 g/dL (3.5-5.0); Alkaline Phosphatase 79 U/L (40-110); Anion Gap 15 mmol/L (10-20); BUN (Urea Nitrogen) 27 mg/dL (9.8-20.1); Bilirubin, Total 0.4 mg/dL (0.2-1.2); Calc. Creatinine Clearance 0 mL/min (70-130); Calcium 9.3 mg/dL (7.8-10.44); Carbon Dioxide 25 mmol/L (22-29); Chloride 100 mmol/L (98-107); Estimated GFR 101; Globulin 2.8 g/dL (2.4-3.5); Glucose 101 mg/dL (70-105); Potassium 5.1 mmol/L (3.5-5.1); Protein, Total 6.7 g/dL (6.0-8.3); Sodium 135 mmol/L (136-145)
[2022-11-03 21:31] LABS: SARS-CoV-2 NAA Rapid Test Not Detected (NotDetected)
[2022-11-03 21:33] LABS: Bilirubin Negative (Negative); Blood, Urine Negative (Negative); Clarity Clear (Clear); Glucose, Urine (Dipstick) Normal (Negative); Ketone, Urine Negative (Negative); Leukocyte Negative Leu/uL (Negative); Nitrite Negative (Negative); Protein, Urine (Dipstick) Negative (Neg-Trace); Specific Gravity, Urine 1.027 (1.002-1.036); Urobilinogen Normal mg/dL (Less than 2)
[2022-11-03] MEDS ORDERED: Cefepime 1 GM VIAL ONE (21:55)
[2022-11-03] MEDS ORDERED: Azithromycin 500 MG VIAL ONE (21:55)
[2022-11-03] MEDS ORDERED: Promethazine HCl 12.5 MG in Sodium Chloride 0.9% 50 ML IVPB SCH (23:15)
[2022-11-03 23:21] LABS: Actual Bicarbonate (HCO3a) 26.9 mEq/L (22-28); Analyzer IN Cardio ER; Base Excess (BEa) -0.1 mEq/L (-2.0 to +3.0); CO2 Tension 53.9 mmHg (35.0-45.0); Calcium, Ionized (arterial) 1.15 mmol/L (1.12-1.30); Carboxyhemoglobin (COHb) 2.4 gm% (0.0-3.0); Hemoglobin (Hb) 12.9 g/dL (12.0-16.0); Potassium - ABG Lab 4.71 mmol/L (3.70-5.30); pH, Arterial 7.32 (7.35-7.45)
[2022-11-03] MEDS ORDERED: Aspirin Chewable 81 MG TAB ONE (23:23)
[2022-11-03] MEDS ORDERED: Dexamethasone 10 MG/ML VIAL ONE (23:23)
[2022-11-03 23:51] LABS: ALV-art Gradient 545.625 mmHg (0-20); Puncture Site LRA
[2022-11-04] MEDS ORDERED: Acetaminophen 650 MG Suppository PR PRN (01:02)
[2022-11-04] MEDS ORDERED: Acetaminophen 325 MG TAB PO PRN (01:02)
[2022-11-04] MEDS ORDERED: Ondansetron ODT 4 MG TAB PO PRN (01:02)
[2022-11-04] MEDS ORDERED: Ondansetron PF 4 MG/2 ML Vial IVP PRN (01:02)
[2022-11-04] MEDS ORDERED: Ipratropium/Albuterol 3 ML NEB NEB PRN (01:14)
[2022-11-04] MEDS: Ipratropium/Albuterol 3 ML NEB NEB SCH ×6 (03:33→23:35)
[2022-11-04] MEDS ORDERED: Vancomycin 1.5 GRAM/300 ML BAG 1.5 GM in Premix Bag 1 BAG IVPB SCH (03:45)
[2022-11-04 05:16] LABS: #Basophils 0.1 thou/uL (0.0-0.2); #Eosinphils 0.1 thou/uL (0.0-0.7); #Lymphocytes 0.4 thou/uL (1.20-3.40); #Monocytes 0.1 thou/uL (0.11-0.59); #Neutrophils 13.4 thou/uL (1.40-6.50); %Basophils 0.9 % (0.0-1.0); %Eosinophils 0.4 % (0.0-10.0); %Lymphocytes 2.9 % (21.0-51.0); %Monocytes 0.8 % (0.0-10.0); Hemoglobin 12.1 g/dL (12.0-16.0); Mean Corpuscular HGB CONC 31.7 g/dL (32.0-36.0); Mean Corpuscular Hemoglobin 30.3 pg (27.0-31.0); Mean Corpuscular Volume 95.4 fl (78.0-98.0); Mean Platelet Volume 9.2 fL (7.4-10.4); Platelet Count 240 10x3/uL (130-400); RBC Distribution Width 16.1 % (11.5-14.5); Red Blood Cell (RBC) Count 3.98 mill/uL (4.20-5.40); White Blood Cell (WBC) Count 14.1 10x3/uL (4.8-10.8)
[2022-11-04 05:32] LABS: Anion Gap 13 mmol/L (10-20); BUN (Urea Nitrogen) 20 mg/dL (9.8-20.1); Calc. Creatinine Clearance 175 mL/min (70-130); Calcium 9.1 mg/dL (7.8-10.44); Carbon Dioxide 22 mmol/L (22-29); Chloride 103 mmol/L (98-107); Estimated GFR 106; Glucose 110 mg/dL (70-105); Sodium 133 mmol/L (136-145)
[2022-11-04] MEDS: Cefepime 2 GM in Sodium Chloride 0.9% 100 ML IVPB SCH ×2 (06:25→19:16)
[2022-11-04] MEDS ORDERED: Cefepime 2 GM VIAL ONE ×2 (06:51→19:00)
[2022-11-04] MEDS ORDERED: Ipratropium/Albuterol 3 ML NEB ONE (08:23)
[2022-11-04 09:02] VITALS: BMI 37.4
[2022-11-04] MEDS ORDERED: Acetaminophen 325 MG TAB ONE (11:43)
[2022-11-04 19:02] VITALS: BP 152/76
[2022-11-04] MEDS ORDERED: Azithromycin 500 MG in Sodium Chloride 0.9% 250 ML 250 ML IVPB SCH (21:00)
[2022-11-04] MEDS ORDERED: Azithromycin 500 MG VIAL ONE (21:10)
[2022-11-05] MEDS: Ipratropium/Albuterol 3 ML NEB NEB SCH ×6 (03:39→21:49)
[2022-11-05] MEDS: Cefepime 2 GM in Sodium Chloride 0.9% 100 ML IVPB SCH ×2 (05:35→17:52)
[2022-11-05] MEDS ORDERED: Mometasone 200 MCG/Formoterol 5 MCG 120 PUFF INHALER INH SCH (10:15)
[2022-11-05] MEDS ORDERED: predniSONE 20 MG TAB PO SCH (10:15)
[2022-11-05 11:30] LABS: HIV (1/2) Antibody/Antigen Non-Reactive (NonReactive); HIV 1/2 INDEX 0.08 S/CO (<1.00)
[2022-11-05] MEDS ORDERED: Sodium Chloride 0.65% Nasal 44 ML BOT EA NARE PRN (17:21)
[2022-11-05] MEDS ORDERED: GUAIFENESIN SF SOLN 200 MG/10 ML UDCUP PO PRN (17:22)
[2022-11-05] MEDS ORDERED: Electrolyte Replacement Protocol 1 EACH FS SCH (17:30)
[2022-11-05] MEDS ORDERED: Electrolyte Replacement Protocol FS PRN (17:45)
[2022-11-05] MEDS: Mometasone 200 MCG/Formoterol 5 MCG 120 PUFF INHALER INH SCH (18:55)
[2022-11-05] MEDS ORDERED: Azithromycin 500 MG in Sodium Chloride 0.9% 250 ML 250 ML IVPB SCH (21:00)
[2022-11-05] MEDS: guaiFENesin ER 600 MG TAB PO SCH (21:16)
[2022-11-06] MEDS: Ipratropium/Albuterol 3 ML NEB NEB SCH ×4 (02:12→14:38)
[2022-11-06 03:58] LABS: #Basophils 0.1 thou/uL (0.0-0.2); #Eosinphils 0.1 thou/uL (0.0-0.7); #Lymphocytes 1.4 thou/uL (1.20-3.40); #Monocytes 0.6 thou/uL (0.11-0.59); #Neutrophils 8.5 thou/uL (1.40-6.50); %Basophils 0.5 % (0.0-1.0); %Eosinophils 0.6 % (0.0-10.0); %Lymphocytes 13.3 % (21.0-51.0); %Monocytes 5.8 % (0.0-10.0); %Neutrophils 79.8 % (42.0-75.0); Hemoglobin 11.5 g/dL (12.0-16.0); Mean Corpuscular HGB CONC 31.2 g/dL (32.0-36.0); Mean Corpuscular Hemoglobin 29.9 pg (27.0-31.0); Mean Corpuscular Volume 95.8 fl (78.0-98.0); Mean Platelet Volume 9.1 fL (7.4-10.4); Platelet Count 214 10x3/uL (130-400); RBC Distribution Width 15.7 % (11.5-14.5); Red Blood Cell (RBC) Count 3.84 mill/uL (4.20-5.40); White Blood Cell (WBC) Count 10.7 10x3/uL (4.8-10.8)
[2022-11-06 04:20] LABS: Anion Gap 13 mmol/L (10-20); BUN (Urea Nitrogen) 16 mg/dL (9.8-20.1); Calc. Creatinine Clearance 192 mL/min (70-130); Calcium 9.3 mg/dL (7.8-10.44); Carbon Dioxide 26 mmol/L (22-29); Chloride 105 mmol/L (98-107); Estimated GFR 108; Glucose 98 mg/dL (70-105); Magnesium 2.4 mg/dL (1.6-2.6); Potassium 4.5 mmol/L (3.5-5.1); Sodium 139 mmol/L (136-145)
[2022-11-06] MEDS: Cefepime 2 GM in Sodium Chloride 0.9% 100 ML IVPB SCH (05:57)
[2022-11-06] MEDS: Mometasone 200 MCG/Formoterol 5 MCG 120 PUFF INHALER INH SCH (07:17)
[2022-11-06 07:45] VITALS: TEMP 97.6
[2022-11-06] MEDS ORDERED: predniSONE 20 MG TAB PO SCH (08:00)
[2022-11-06] MEDS: Calcium Carbonate 600 MG + Vit D TAB PO SCH ×2 (09:57→16:55)
[2022-11-06] MEDS: guaiFENesin ER 600 MG TAB PO SCH (09:57)
[2022-11-06 13:44] LABS: ANA Symphony (Qualitative) Negative (Negative); ANA Symphony (Quantitative) 0.3 Ratio (< 0.7 Negative); dsDNA IgG Antibody 5.4 IU/mL (<10 Negative)
[2022-11-11 08:17] LABS: Aspergillus fumigatus Negative (Negative); Aureobasidium pullalans IgG Negative (Negative); Micropolyspora faeni Negative (Negative); Pigeon Droppings IgG Negative (Negative); T sacchari Negative (Negative); T vulgaris Negative (Negative)
== END 2022-11-06 17:57 | disposition home or self-care (01) | DRG 871 ==
LOC: ERS 19:42 → ERHOLD 23:57 → IMCU/EMU 11-04 21:53
PROVIDERS: ADMIT Student in an Organized Health Care Education/Training Program; ATTEND Internal Medicine
DX: A41.9 Sepsis, unspecified organism (principal); J18.9 Pneumonia, unspecified organism; J96.01 Acute respiratory failure with hypoxia; J84.9 Interstitial pulmonary disease, unspecified; E87.1 Hypo-osmolality and hyponatremia; K51.90 Ulcerative colitis, unspecified, without complications; I50.32 Chronic diastolic (congestive) heart failure; R65.20 Severe sepsis without septic shock; Z20.822 Contact with and (suspected) exposure to COVID-19; F17.210 Nicotine dependence, cigarettes, uncomplicated; E66.01 Morbid (severe) obesity due to excess calories; Z90.49 Acquired absence of other specified parts of digestive tract; Z90.710 Acquired absence of both cervix and uterus; Z79.51 Long term (current) use of inhaled steroids; Z79.52 Long term (current) use of systemic steroids; Z79.899 Other long term (current) drug therapy; Z68.38 Body mass index [BMI] 38.0-38.9, adult
CPT/HCPCS: 36415; 36600; 71045; 71275; 80048; 80053; 81003; 82805; 83605; 83735; 83880; 84484; 85025; 86038; 86140; 86225; 86331; 86602; 86606; 86671; 87040; 87389; 87804; 93005; 94640; 96365; 96375; J0456; J0692; J1100; J1650; J2550; J3490; J7050; J7512; J7620; Q9967; U0002

== ENCOUNTER 2022-12-11 12:26 | Inpatient (IN) | payer BC ==
[2022-12-11] MEDS ORDERED: Iopamidol-370 76% 500 ML 1 ML ONE (12:31)
[2022-12-11 13:15] LABS: #Basophils 0.1 thou/uL (0.0-0.2); #Eosinphils 0.1 thou/uL (0.0-0.7); #Lymphocytes 1.1 thou/uL (1.20-3.40); #Monocytes 0.6 thou/uL (0.11-0.59); #Neutrophils 7.8 thou/uL (1.40-6.50); %Basophils 0.7 % (0.0-1.0); %Eosinophils 1.4 % (0.0-10.0); %Lymphocytes 10.9 % (21.0-51.0); %Monocytes 6.3 % (0.0-10.0); %Neutrophils 80.7 % (42.0-75.0); Hemoglobin 10.1 g/dL (12.0-16.0); Mean Corpuscular HGB CONC 30.8 g/dL (32.0-36.0); Mean Corpuscular Hemoglobin 28.7 pg (27.0-31.0); Mean Corpuscular Volume 93.3 fl (78.0-98.0); Mean Platelet Volume 9.1 fL (7.4-10.4); Platelet Count 276 10x3/uL (130-400); RBC Distribution Width 15.7 % (11.5-14.5); Red Blood Cell (RBC) Count 3.52 mill/uL (4.20-5.40); White Blood Cell (WBC) Count 9.7 10x3/uL (4.8-10.8)
[2022-12-11 13:31] LABS: ALT (SGPT) 86 U/L (8-55); AST (SGOT) 51 U/L (5-34); Albumin 3.8 g/dL (3.5-5.0); Alkaline Phosphatase 81 U/L (40-110); Anion Gap 9 mmol/L (10-20); BUN (Urea Nitrogen) 12 mg/dL (9.8-20.1); Bilirubin, Total 0.4 mg/dL (0.2-1.2); Calc. Creatinine Clearance 0 mL/min (70-130); Calcium 9.8 mg/dL (7.8-10.44); Carbon Dioxide 35 mmol/L (22-29); Chloride 99 mmol/L (98-107); Estimated GFR 106; Globulin 2.9 g/dL (2.4-3.5); Glucose 95 mg/dL (70-105); Potassium 4.2 mmol/L (3.5-5.1); Protein, Total 6.7 g/dL (6.0-8.3); Sodium 139 mmol/L (136-145)
[2022-12-11] MEDS ORDERED: Aspirin Chewable 81 MG TAB ONE (13:56)
[2022-12-11] MEDS ORDERED: Dexamethasone 10 MG/ML VIAL ONE (13:56)
[2022-12-11] MEDS ORDERED: Ipratropium/Albuterol 3 ML NEB ONE (13:56)
[2022-12-11 14:04] LABS: CKMB 4.7 ng/mL (0-6.6)
[2022-12-11] MEDS ORDERED: Furosemide 40 MG/4 ML VIAL ONE (14:16)
[2022-12-11] MEDS ORDERED: Calcium Carbonate 500 MG ChewTAB PO PRN (14:27)
[2022-12-11] MEDS ORDERED: Ondansetron PF 4 MG/2 ML Vial IVP PRN (14:27)
[2022-12-11] MEDS ORDERED: Senokot S 8.6-50 MG TAB PO PRN (14:27)
[2022-12-11] MEDS ORDERED: Ipratropium/Albuterol 3 ML NEB NEB PRN (14:36)
[2022-12-11] MEDS ORDERED: Empagliflozin 10 MG TAB PO SCH (16:00)
[2022-12-11] MEDS ORDERED: Spironolactone 25 MG TAB PO SCH (16:00)
[2022-12-11 16:14] VITALS: BMI 38.7
[2022-12-11] MEDS: Calcium Carbonate 600 MG + Vit D TAB PO SCH (16:57)
[2022-12-11] MEDS ORDERED: Furosemide 40 MG/4 ML VIAL SLOW IVP SCH (17:00)
[2022-12-11] MEDS ORDERED: Furosemide 20 MG/2 ML VIAL SLOW IVP SCH (17:00)
[2022-12-11] MEDS: Mometasone 200 MCG/Formoterol 5 MCG 120 PUFF INHALER INH SCH (18:53)
[2022-12-11 19:11] LABS: Troponin I 0.342 ng/mL (< 0.028)
[2022-12-12 04:29] LABS: #Lymphocytes 0.7 thou/uL (1.20-3.40); #Monocytes 0.3 thou/uL (0.11-0.59); %Basophils 0.2 % (0.0-1.0); %Eosinophils 0.4 % (0.0-10.0); %Lymphocytes 7.9 % (21.0-51.0); %Monocytes 3.3 % (0.0-10.0); %Neutrophils 88.3 % (42.0-75.0); Hemoglobin 12.2 g/dL (12.0-16.0); Mean Corpuscular HGB CONC 30.9 g/dL (32.0-36.0); Mean Corpuscular Hemoglobin 29.3 pg (27.0-31.0); Mean Corpuscular Volume 94.9 fl (78.0-98.0); Mean Platelet Volume 8.8 fL (7.4-10.4); Platelet Count 336 10x3/uL (130-400); RBC Distribution Width 15.9 % (11.5-14.5); Red Blood Cell (RBC) Count 4.15 mill/uL (4.20-5.40)
[2022-12-12 04:50] LABS: Hemoglobin A1c 5.5 % (4.0-6.0)
[2022-12-12 04:51] LABS: ALT (SGPT) 94 U/L (8-55); AST (SGOT) 44 U/L (5-34); Albumin 4.3 g/dL (3.5-5.0); Alkaline Phosphatase 95 U/L (40-110); Anion Gap 18 mmol/L (10-20); BUN (Urea Nitrogen) 18 mg/dL (9.8-20.1); Bilirubin, Total 0.3 mg/dL (0.2-1.2); Calc. Creatinine Clearance 140 mL/min (70-130); Calcium 10.4 mg/dL (7.8-10.44); Carbon Dioxide 33 mmol/L (22-29); Cardiac Risk 3.9 (Less than 4.5); Chloride 94 mmol/L (98-107); Cholesterol 180 mg/dl (< 200 Desired); Estimated GFR 93; Globulin 3.4 g/dL (2.4-3.5); Glucose 131 mg/dL (70-105); HDL Cholesterol 46 mg/dL (>60 Neg Risk); LDL Cholesterol, Calculated 116 mg/dL; Magnesium 2.5 mg/dL (1.6-2.6); Potassium 4.6 mmol/L (3.5-5.1); Protein, Total 7.7 g/dL (6.0-8.3); Sodium 140 mmol/L (136-145); Triglycerides 92 mg/dL (Less than 150)
[2022-12-12] MEDS: Furosemide 40 MG/4 ML VIAL SLOW IVP SCH ×2 (05:27→14:04)
[2022-12-12] MEDS: Mometasone 200 MCG/Formoterol 5 MCG 120 PUFF INHALER INH SCH ×2 (07:11→19:08)
[2022-12-12] MEDS: Spironolactone 25 MG TAB PO SCH (08:15)
[2022-12-12] MEDS: Calcium Carbonate 600 MG + Vit D TAB PO SCH ×2 (08:16→16:15)
[2022-12-12] MEDS: Empagliflozin 10 MG TAB PO SCH (09:08)
[2022-12-12] MEDS: Aspirin 81 mg Enteric Coated Tablet PO SCH (09:08)
[2022-12-12] MEDS: Acetaminophen 325 MG TAB PO PRN ×2 (09:09→15:05)
[2022-12-12] MEDS: Benzonatate 100 MG CAP PO PRN (15:10)
[2022-12-12] MEDS: Guaifenesin DM 100-10/5 ML UDCUP PO PRN ×2 (17:47→23:12)
[2022-12-12] MEDS: traMADol HCl 50 MG TAB PO PRN (17:50)
[2022-12-13] MEDS: Furosemide 40 MG/4 ML VIAL SLOW IVP SCH (05:07)
[2022-12-13] MEDS: Guaifenesin DM 100-10/5 ML UDCUP PO PRN ×2 (05:07→11:38)
[2022-12-13 05:46] LABS: Anion Gap 16 mmol/L (10-20); BUN (Urea Nitrogen) 28 mg/dL (9.8-20.1); Calc. Creatinine Clearance 139 mL/min (70-130); Calcium 9.7 mg/dL (7.8-10.44); Carbon Dioxide 32 mmol/L (22-29); Chloride 92 mmol/L (98-107); Estimated GFR 96; Glucose 96 mg/dL (70-105); Potassium 3.9 mmol/L (3.5-5.1); Sodium 136 mmol/L (136-145)
[2022-12-13] MEDS: Mometasone 200 MCG/Formoterol 5 MCG 120 PUFF INHALER INH SCH ×2 (07:33→19:27)
[2022-12-13] MEDS: Spironolactone 25 MG TAB PO SCH (07:39)
[2022-12-13] MEDS: Calcium Carbonate 600 MG + Vit D TAB PO SCH ×2 (07:39→16:42)
[2022-12-13] MEDS: Empagliflozin 10 MG TAB PO SCH (08:56)
[2022-12-13] MEDS: Aspirin 81 mg Enteric Coated Tablet PO SCH (08:56)
[2022-12-13] MEDS ORDERED: Potassium Chloride 20 MEQ TAB PO SCH (12:00)
[2022-12-13] MEDS: Furosemide 20 MG/2 ML VIAL SLOW IVP SCH ×2 (13:30→13:32)
[2022-12-13] MEDS: guaiFENesin/Codeine 200 mg/20 mg 10 ml Cup PO PRN ×2 (17:19→23:44)
[2022-12-13] MEDS: Rosuvastatin 20 MG TAB PO SCH (19:52)
[2022-12-14] MEDS: Furosemide 20 MG/2 ML VIAL SLOW IVP SCH ×2 (05:45→15:11)
[2022-12-14 05:47] LABS: Anion Gap 16 mmol/L (10-20); BUN (Urea Nitrogen) 35 mg/dL (9.8-20.1); Calc. Creatinine Clearance 127 mL/min (70-130); Carbon Dioxide 31 mmol/L (22-29); Chloride 94 mmol/L (98-107); Estimated GFR 86; Glucose 97 mg/dL (70-105); Potassium 4.4 mmol/L (3.5-5.1); Sodium 137 mmol/L (136-145)
[2022-12-14] MEDS: guaiFENesin/Codeine 200 mg/20 mg 10 ml Cup PO PRN ×3 (05:49→18:18)
[2022-12-14] MEDS: Mometasone 200 MCG/Formoterol 5 MCG 120 PUFF INHALER INH SCH ×2 (07:43→19:01)
[2022-12-14] MEDS: Empagliflozin 10 MG TAB PO SCH (10:27)
[2022-12-14] MEDS: Aspirin 81 mg Enteric Coated Tablet PO SCH (10:27)
[2022-12-14] MEDS: Calcium Carbonate 600 MG + Vit D TAB PO SCH ×2 (10:27→18:18)
[2022-12-14] MEDS: Spironolactone 25 MG TAB PO SCH (10:28)
[2022-12-14] MEDS ORDERED: Communication Order-Pharmacy FS SCH (14:45)
[2022-12-14] MEDS: Rosuvastatin 20 MG TAB PO SCH (21:05)
[2022-12-15] MEDS: guaiFENesin/Codeine 200 mg/20 mg 10 ml Cup PO PRN ×4 (00:39→19:57)
[2022-12-15] MEDS: Furosemide 20 MG/2 ML VIAL SLOW IVP SCH ×2 (05:54→13:36)
[2022-12-15 08:06] LABS: Chloride 95 mmol/L (98-107); Potassium 4.5 mmol/L (3.5-5.1); Sodium 136 mmol/L (136-145)
[2022-12-15 08:07] LABS: Calcium 10.1 mg/dL (7.8-10.44); Glucose 122 mg/dL (70-105)
[2022-12-15] MEDS: Mometasone 200 MCG/Formoterol 5 MCG 120 PUFF INHALER INH SCH ×2 (08:07→18:53)
[2022-12-15 08:09] LABS: Anion Gap 17 mmol/L (10-20); Carbon Dioxide 29 mmol/L (22-29)
[2022-12-15 08:11] LABS: BUN (Urea Nitrogen) 32 mg/dL (9.8-20.1); Calc. Creatinine Clearance 119 mL/min (70-130); Estimated GFR 80
[2022-12-15] MEDS: Calcium Carbonate 600 MG + Vit D TAB PO SCH ×2 (08:24→17:38)
[2022-12-15] MEDS: Empagliflozin 10 MG TAB PO SCH (08:24)
[2022-12-15] MEDS: Spironolactone 25 MG TAB PO SCH (08:24)
[2022-12-15] MEDS: Aspirin 81 mg Enteric Coated Tablet PO SCH (08:26)
[2022-12-15] MEDS: predniSONE 20 MG TAB PO SCH (08:26)
[2022-12-15] MEDS: traMADol HCl 50 MG TAB PO PRN (17:38)
[2022-12-15] MEDS: Rosuvastatin 20 MG TAB PO SCH (19:56)
[2022-12-16 05:24] LABS: Anion Gap 13 mmol/L (10-20); BUN (Urea Nitrogen) 40 mg/dL (9.8-20.1); Calc. Creatinine Clearance 122 mL/min (70-130); Calcium 9.9 mg/dL (7.8-10.44); Carbon Dioxide 32 mmol/L (22-29); Chloride 98 mmol/L (98-107); Estimated GFR 83; Glucose 103 mg/dL (70-105); Potassium 4.8 mmol/L (3.5-5.1); Sodium 138 mmol/L (136-145)
[2022-12-16] MEDS: guaiFENesin/Codeine 200 mg/20 mg 10 ml Cup PO PRN (06:01)
[2022-12-16] MEDS: Spironolactone 25 MG TAB PO SCH (06:01)
[2022-12-16] MEDS: predniSONE 20 MG TAB PO SCH (06:01)
[2022-12-16] MEDS: Benzonatate 100 MG CAP PO PRN (06:01)
[2022-12-16] MEDS: Calcium Carbonate 600 MG + Vit D TAB PO SCH (06:01)
[2022-12-16] MEDS: Aspirin 81 mg Enteric Coated Tablet PO SCH (06:02)
[2022-12-16] MEDS ORDERED: Lidocaine 1% (PF) 30 ML VIAL ONE (06:27)
[2022-12-16] MEDS ORDERED: FENTANYL 50 MCG/ML 1 ML VIAL ONE ×2 (07:09→07:42)
[2022-12-16] MEDS ORDERED: Midazolam HCl 2 mg/2 ml Vial ONE ×2 (07:10→07:41)
[2022-12-16] MEDS: Mometasone 200 MCG/Formoterol 5 MCG 120 PUFF INHALER INH SCH (07:25)
[2022-12-16] MEDS ORDERED: Sodium Chloride 0.9% 200 ML IV PRN (08:47)
[2022-12-16] MEDS ORDERED: Acetaminophen/Codeine 30-300mg Tablet PO PRN ×2 (08:47)
[2022-12-16] MEDS ORDERED: Nitroglycerin 0.4 MG TAB (25 Tab Bottle) SL PRN (08:47)
[2022-12-16] MEDS ORDERED: Sulfameth/Trimethoprim DS 800-160mg TAB PO SCH (09:00)
[2022-12-16] MEDS: Empagliflozin 10 MG TAB PO SCH (09:37)
[2022-12-16 12:05] VITALS: TEMP 98
[2022-12-16] MEDS ORDERED: Iopamidol 370 76% 100 ML VIAL ONE (12:14)
[2022-12-16 12:32] VITALS: BP 122/81
[2022-12-17] MEDS ORDERED: Furosemide 20 MG TAB PO SCH (09:00)
== END 2022-12-16 16:40 | disposition home or self-care (01) | DRG 286 ==
LOC: SUATTDRO 12:26 → ERS 12:26 → 2NO 14:33
PROVIDERS: ADMIT Internal Medicine; ATTEND Internal Medicine
PROC: 4A023N8 Measurement of Cardiac Sampling and Pressure, Bilateral, Percutaneous Approach (ICD-10-PCS; principal; 2022-12-16)
PROC: B2161ZZ Fluoroscopy of Right and Left Heart using Low Osmolar Contrast (ICD-10-PCS; 2022-12-16)
PROC: B2111ZZ Fluoroscopy of Multiple Coronary Arteries using Low Osmolar Contrast (ICD-10-PCS; 2022-12-16)
DX: I50.33 Acute on chronic diastolic (congestive) heart failure (principal); K51.90 Ulcerative colitis, unspecified, without complications; J96.21 Acute and chronic respiratory failure with hypoxia; I24.8 Other forms of acute ischemic heart disease; F17.210 Nicotine dependence, cigarettes, uncomplicated; J44.9 Chronic obstructive pulmonary disease, unspecified; E66.01 Morbid (severe) obesity due to excess calories; I45.10 Unspecified right bundle-branch block; Z68.37 Body mass index [BMI] 37.0-37.9, adult; J84.10 Pulmonary fibrosis, unspecified; E87.5 Hyperkalemia
CPT/HCPCS: 36415; 36416; 71045; 71275; 80048; 80053; 80061; 82553; 83036; 83735; 83880; 84443; 84484; 85025; 85379; 93005; 93010; 93306; 93460; 93798; 94640; 94664; 94760; 96372; 96374; 96375; 97139; 99152; 99153; C1751; C1769; C1894; J1100; J1650; J1940; J2001; J2250; J3010; J7512; J7620; Q9967; U0003; U0005

== ENCOUNTER 2023-01-12 13:00 | Outpatient (CLI) | payer BC | END 2023-01-12 13:01 | disposition home or self-care (01) | LOC: RAD 13:00 | PROVIDERS: ATTEND Internal Medicine | DX: R06.00 Dyspnea, unspecified (principal) | CPT/HCPCS: 71046 ==

== ENCOUNTER 2024-07-13 18:18 | Inpatient (IN) | payer BC ==
[~2024-07-13 18:18] MED LIST changes: -Iopamidol-370 76% 500 ML 1 ML ONE; +Iopamidol-370 76% 500 ML MDV (1 ML CHARGE) ONE
[2024-07-13 19:02] LABS: #Basophils 0.07 10x3/uL (0.0-0.2); %Basophils 1.1 % (0.0-1.0); %Eosinophils 2.2 % (0.0-10.0); %Lymphocytes 12.2 % (21.0-51.0); %Monocytes 14.1 % (0.0-10.0); %Neutrophils 69.8 % (42.0-75.0); Hematocrit 27.3 % (36.0-47.0); Hemoglobin 8.2 g/dL (12.0-16.0); Mean Corpuscular Hemoglobin 26.4 pg (27.0-31.0); Mean Corpuscular Volume 87.8 fL (78.0-98.0); Mean Platelet Volume 10.2 fL (7.4-10.4); Platelet Count 362 10x3/uL (130-400); RBC Distribution Width 16.5 % (11.5-14.5); Red Blood Cell (RBC) Count 3.11 mill/uL (4.20-5.40)
[2024-07-13 19:17] LABS: ALT (SGPT) 8 U/L (8-55); AST (SGOT) 11 U/L (5-34); Albumin 2.8 g/dL (3.5-5.0); Alkaline Phosphatase 88 U/L (40-110); Anion Gap 15 mmol/L (10-20); BUN (Urea Nitrogen) 10 mg/dL (9.8-20.1); Bilirubin, Total 0.3 mg/dL (0.2-1.2); Calc. Creatinine Clearance 0 mL/min (70-130); Calcium 9.4 mg/dL (7.8-10.44); Carbon Dioxide 22 mmol/L (22-29); Chloride 99 mmol/L (98-107); Estimated GFR 100; Globulin 4.1 g/dL (2.4-3.5); Glucose 97 mg/dL (70-105); Lipase 11 U/L (8-78); Potassium 4.1 mmol/L (3.5-5.1); Protein, Total 6.9 g/dL (6.0-8.3); Sodium 132 mmol/L (136-145)
[2024-07-13 19:21] LABS: Troponin I Less than 0.010 ng/mL (< 0.028)
[2024-07-13] MEDS ORDERED: Ondansetron PF 4 MG/2 ML Vial ONE (19:30)
[2024-07-13] MEDS ORDERED: Morphine 2 MG/ML VIAL ONE (19:30)
[2024-07-13] MEDS ORDERED: methylPREDNISolone Sod Succ/PF 125 MG/2 ML VIAL ONE (19:35)
[2024-07-13] MEDS ORDERED: Acetaminophen 325 MG TAB PO PRN (19:58)
[2024-07-13] MEDS ORDERED: Ondansetron PF 4 MG/2 ML Vial IVP PRN (19:58)
[2024-07-13] MEDS ORDERED: Ondansetron ODT 4 MG TAB PO PRN (19:58)
[2024-07-13] MEDS ORDERED: traMADol HCl 50 MG TAB PO PRN (19:58)
[2024-07-13] MEDS ORDERED: Famotidine 20 MG TAB PO SCH (21:00)
[2024-07-13] MEDS ORDERED: Famotidine/PF 20 mg/2ml Vial SLOW IVP SCH (21:00)
[2024-07-13 21:04] LABS: Iron 12 ug/dL (50-170); Iron Binding Capacity, Total 285 mcg/dL (265-497)
[2024-07-13 21:11] LABS: Hemoglobin A1c 5.2 % (4.0-6.0)
[2024-07-13 21:17] LABS: Cardiac Risk 5.4 (Less than 4.5)
[2024-07-13 21:31] VITALS: BMI 32.1
[2024-07-13] MEDS: Sodium Chloride 0.9% 1,000 ML IV SCH (22:10)
[2024-07-13] MEDS: Pantoprazole 40 MG VIAL IVP SCH (22:33)
[2024-07-13] MEDS: Ketorolac Tromethamine 30 MG (1 mL) VIAL IVP SCH (22:33)
[2024-07-13] MEDS: Morphine 2 MG/ML VIAL SLOW IVP PRN (23:31)
[2024-07-14] MEDS: Ipratropium/Albuterol 3 ML NEB NEB SCH (00:12)
[2024-07-14 06:19] LABS: #Basophils Less than 0.03 10x3/uL (0.0-0.2); #Eosinphils Less than 0.03 10x3/uL (0.0-0.7); %Basophils 0.3 % (0.0-1.0); %Lymphocytes 14.7 % (21.0-51.0); %Monocytes 3.9 % (0.0-10.0); %Neutrophils 79.4 % (42.0-75.0); Hematocrit 24.4 % (36.0-47.0); Hemoglobin 7.1 g/dL (12.0-16.0); Mean Corpuscular HGB CONC 29.1 g/dL (32.0-36.0); Mean Corpuscular Hemoglobin 25.8 pg (27.0-31.0); Mean Corpuscular Volume 88.7 fL (78.0-98.0); Mean Platelet Volume 10.4 fL (7.4-10.4); Platelet Count 291 10x3/uL (130-400); RBC Distribution Width 16.4 % (11.5-14.5); Red Blood Cell (RBC) Count 2.75 mill/uL (4.20-5.40)
[2024-07-14 06:34] LABS: ALT (SGPT) 7 U/L (8-55); AST (SGOT) 8 U/L (5-34); Albumin 2.6 g/dL (3.5-5.0); Alkaline Phosphatase 75 U/L (40-110); Anion Gap 14 mmol/L (10-20); BUN (Urea Nitrogen) 13 mg/dL (9.8-20.1); Bilirubin, Total 0.2 mg/dL (0.2-1.2); Calc. Creatinine Clearance 125 mL/min (70-130); Calcium 8.7 mg/dL (7.8-10.44); Carbon Dioxide 20 mmol/L (22-29); Chloride 103 mmol/L (98-107); Estimated GFR 101; Globulin 3.4 g/dL (2.4-3.5); Glucose 215 mg/dL (70-105); Potassium 3.3 mmol/L (3.5-5.1); Sodium 134 mmol/L (136-145)
[2024-07-14] MEDS ORDERED: Potassium Chloride 20 MEQ TAB PO SCH (08:30)
[2024-07-14] MEDS: methylPREDNISolone Sod Succ 40 MG VIAL IVP SCH (09:01)
[2024-07-14] MEDS: Potassium Chloride 20 MEQ in Premix 1 BAG IVPB SCH (09:01)
[2024-07-14] MEDS: Pantoprazole 40 MG VIAL IVP SCH (09:01)
[2024-07-14] MEDS ORDERED: methylPREDNISolone Sod Succ 40 MG VIAL IVP SCH (16:00)
[2024-07-15 06:18] LABS: #Basophils Less than 0.03 10x3/uL (0.0-0.2); #Eosinphils Less than 0.03 10x3/uL (0.0-0.7); %Basophils 0.2 % (0.0-1.0); %Lymphocytes 16.5 % (21.0-51.0); %Neutrophils 69.2 % (42.0-75.0); Hematocrit 23.8 % (36.0-47.0); Hemoglobin 6.8 g/dL (12.0-16.0); Mean Corpuscular HGB CONC 28.6 g/dL (32.0-36.0); Mean Corpuscular Hemoglobin 26.2 pg (27.0-31.0); Mean Corpuscular Volume 91.5 fL (78.0-98.0); Mean Platelet Volume 10.2 fL (7.4-10.4); Platelet Count 333 10x3/uL (130-400); RBC Distribution Width 16.4 % (11.5-14.5)
[2024-07-15 06:22] LABS: Anion Gap 12 mmol/L (10-20); BUN (Urea Nitrogen) 18 mg/dL (9.8-20.1); Calc. Creatinine Clearance 135 mL/min (70-130); Calcium 8.6 mg/dL (7.8-10.44); Carbon Dioxide 22 mmol/L (22-29); Chloride 108 mmol/L (98-107); Estimated GFR 103; Glucose 78 mg/dL (70-105); Potassium 4.3 mmol/L (3.5-5.1); Sodium 138 mmol/L (136-145)
[2024-07-15] MEDS ORDERED: methylPREDNISolone Sod Succ 40 MG VIAL IVP SCH (09:00)
[2024-07-15] MEDS: methylPREDNISolone Sod Succ 40 MG VIAL IVP SCH (09:56)
[2024-07-15 16:46] VITALS: BP 135/71; TEMP 98.1
[2024-07-17 16:14] LABS: Adenovirus F 40-41 Not Detected (Not Detected); Astrovirus Not Detected (Not Detected); C. difficile toxin A+B DETECTED (Not Detected); Campylobacter by PCR Not Detected (Not Detected); Cryptosporidium Not Detected (Not Detected); Cyclospora cayetanensis Not Detected (Not Detected); Entamoeba histolytica Not Detected (Not Detected); Enteroaggregative E. coli Not Detected (Not Detected); Enteropathogenic E. coli DETECTED (Not Detected); Enterotoxigenic E. coli Not Detected (Not Detected); Giardia lamblia Not Detected (Not Detected); Norovirus GI-GII Not Detected (Not Detected); Plesiomonas shigelloides Not Detected (Not Detected); Rotavirus A Not Detected (Not Detected); Salmonella Not Detected (Not Detected); Sapovirus Not Detected (Not Detected); Shiga-toxin-producing E coli Not Detected (Not Detected); Shigella/Enteroinvasive E coli Not Detected (Not Detected); Vibrio Not Detected (Not Detected); Vibrio cholerae Not Detected (Not Detected); Yersinia enterocolitica Not Detected (Not Detected)
== END 2024-07-15 15:43 | disposition home or self-care (01) | DRG 386 ==
LOC: ERS 18:18 → T4-B 19:52 → OBSVTOIN 07-14 16:08
PROVIDERS: ADMIT Internal Medicine; ATTEND Internal Medicine
PROC: 30233N1 Transfusion of Nonautologous Red Blood Cells into Peripheral Vein, Percutaneous Approach (ICD-10-PCS; principal; 2024-07-15)
DX: K51.90 Ulcerative colitis, unspecified, without complications (principal); J84.9 Interstitial pulmonary disease, unspecified; J96.11 Chronic respiratory failure with hypoxia; E87.70 Fluid overload, unspecified; D64.9 Anemia, unspecified
CPT/HCPCS: 36415; 36430; 71045; 74177; 80048; 80053; 80061; 82728; 83036; 83540; 83550; 83605; 83690; 83880; 84484; 85025; 86141; 86850; 86900; 86901; 87507; 93005; 94640; 96374; 96375; 96376; G0378; J1885; J2272; J2405; J2470; J2919; J3480; J7030; J7620; P9016; Q9967

== ENCOUNTER 2024-09-24 10:37 | Inpatient (IN) | payer BC ==
[2024-09-24 11:24] LABS: #Basophils 0.08 10x3/uL (0.0-0.2); %Basophils 0.7 % (0.0-1.0); %Eosinophils 1.3 % (0.0-10.0); %Lymphocytes 9.4 % (21.0-51.0); %Monocytes 8.3 % (0.0-10.0); %Neutrophils 79.1 % (42.0-75.0); Hemoglobin 5.4 g/dL (12.0-16.0); Mean Corpuscular Hemoglobin 22.8 pg (27.0-31.0); Mean Corpuscular Volume 84.4 fL (78.0-98.0); Mean Platelet Volume 9.5 fL (7.4-10.4); Platelet Count 472 10x3/uL (130-400); RBC Distribution Width 18.2 % (11.5-14.5); Red Blood Cell (RBC) Count 2.37 mill/uL (4.20-5.40)
[2024-09-24 11:36] LABS: PTT 23.1 sec (22.9-36.1); Prothrombin Time 12.8 sec (12.0-14.7)
[2024-09-24 11:39] LABS: ALT (SGPT) 6 U/L (8-55); AST (SGOT) 18 U/L (5-34); Albumin 2.8 g/dL (3.5-5.0); Alkaline Phosphatase 109 U/L (40-110); Anion Gap 17 mmol/L (10-20); BUN (Urea Nitrogen) 13 mg/dL (9.8-20.1); Bilirubin, Total 0.3 mg/dL (0.2-1.2); Calc. Creatinine Clearance 0 mL/min (70-130); Calcium 9.1 mg/dL (7.8-10.44); Carbon Dioxide 24 mmol/L (22-29); Chloride 100 mmol/L (98-107); Estimated GFR 101; Globulin 3.8 g/dL (2.4-3.5); Glucose 95 mg/dL (70-105); Potassium 5.1 mmol/L (3.5-5.1); Protein, Total 6.6 g/dL (6.0-8.3); Sodium 136 mmol/L (136-145)
[2024-09-24 11:43] LABS: Troponin I Less than 0.010 ng/mL (< 0.028)
[2024-09-24 12:00] LABS: Anisocytosis SLIGHT = 6-15 cells HPF (0-5); Hypochromia MARKED = >30 cells HPF (0-5); Microcytosis MODERATE=15-30 cells HPF (0-5); Platelet Adequacy Comment Platelets Increased; Polychromasia SLIGHT = 2-3 cells HPF (0-2); Stomatocytes MODERATE= 6-15 cells HPF (0-1); Tear Drops SLIGHT = 2-5 cells HPF (0-1)
[2024-09-24] MEDS ORDERED: Calcium Carbonate 500 MG ChewTAB PO PRN (12:03)
[2024-09-24] MEDS ORDERED: Acetaminophen 325 MG TAB PO PRN (12:03)
[2024-09-24] MEDS ORDERED: Albuterol 2.5 MG (3 mL) NEB NEB PRN (13:03)
[2024-09-24 14:58] VITALS: BMI 31.3
[2024-09-24] MEDS: Lactated Ringer's 500 ML IV SCH (15:08)
[2024-09-24] MEDS: Morphine 2 MG/ML VIAL SLOW IVP PRN (15:12)
[2024-09-24] MEDS: Pantoprazole 40 MG VIAL IVP SCH ×2 (15:13→20:32)
[2024-09-24] MEDS: Guaifenesin DM 100-10/5 ML UDCUP PO PRN (16:34)
[2024-09-24 16:45] LABS: Troponin I Less than 0.010 ng/mL (< 0.028)
[2024-09-24 19:14] LABS: Troponin I Less than 0.010 ng/mL (< 0.028)
[2024-09-25 02:31] LABS: Hematocrit 24.3 % (36.0-47.0); Hemoglobin 7.3 g/dL (12.0-16.0); Platelet Count 419 10x3/uL (130-400)
[2024-09-25 04:43] LABS: #Basophils 0.09 10x3/uL (0.0-0.2); %Basophils 1.1 % (0.0-1.0); %Lymphocytes 13.9 % (21.0-51.0); %Neutrophils 69.9 % (42.0-75.0); Hemoglobin 6.8 g/dL (12.0-16.0); Mean Corpuscular HGB CONC 29.6 g/dL (32.0-36.0); Mean Corpuscular Hemoglobin 24.5 pg (27.0-31.0); Mean Platelet Volume 10.1 fL (7.4-10.4); Platelet Count 390 10x3/uL (130-400); RBC Distribution Width 16.9 % (11.5-14.5); Red Blood Cell (RBC) Count 2.77 mill/uL (4.20-5.40)
[2024-09-25 07:27] LABS: Chloride 105 mmol/L (98-107); Potassium 4.4 mmol/L (3.5-5.1); Sodium 138 mmol/L (136-145)
[2024-09-25 07:28] LABS: Calcium 8.9 mg/dL (7.8-10.44); Glucose 83 mg/dL (70-105)
[2024-09-25 07:29] LABS: Anion Gap 12 mmol/L (10-20); Carbon Dioxide 25 mmol/L (22-29)
[2024-09-25 07:32] LABS: BUN (Urea Nitrogen) 13 mg/dL (9.8-20.1); Calc. Creatinine Clearance 140 mL/min (70-130); Estimated GFR 104
[2024-09-25] MEDS: FLU (Fluarix Triv) TS24-25(6MOS UP)/PF 45 MCG/0.5 ML Syringe IM ONE (08:44)
[2024-09-25] MEDS: Ipratropium/Albuterol 3 ML NEB NEB SCH (09:53)
[2024-09-25 18:37] LABS: Hematocrit 27.7 % (36.0-47.0); Hemoglobin 8.4 g/dL (12.0-16.0)
[2024-09-26] MEDS: hydrOXYzine 25 MG TAB PO SCH ×2 (01:43→21:21)
[2024-09-26 03:43] LABS: %Basophils 0.9 % (0.0-1.0); %Eosinophils 1.6 % (0.0-10.0); %Lymphocytes 9.9 % (21.0-51.0); %Monocytes 9.1 % (0.0-10.0); %Neutrophils 77.5 % (42.0-75.0); Hematocrit 26.2 % (36.0-47.0); Hemoglobin 7.9 g/dL (12.0-16.0); Mean Corpuscular HGB CONC 30.2 g/dL (32.0-36.0); Mean Corpuscular Hemoglobin 25.3 pg (27.0-31.0); Mean Platelet Volume 9.6 fL (7.4-10.4); Platelet Count 360 10x3/uL (130-400); RBC Distribution Width 17.2 % (11.5-14.5); Red Blood Cell (RBC) Count 3.12 mill/uL (4.20-5.40)
[2024-09-26 03:59] LABS: Anion Gap 16 mmol/L (10-20); BUN (Urea Nitrogen) 15 mg/dL (9.8-20.1); Calc. Creatinine Clearance 136 mL/min (70-130); Calcium 8.9 mg/dL (7.8-10.44); Carbon Dioxide 24 mmol/L (22-29); Chloride 104 mmol/L (98-107); Estimated GFR 104; Glucose 95 mg/dL (70-105); Potassium 3.7 mmol/L (3.5-5.1); Sodium 140 mmol/L (136-145)
[2024-09-26] MEDS: Pantoprazole DR 40 MG TAB PO SCH (10:03)
[2024-09-26] MEDS: Benzonatate 100 MG CAP PO PRN (21:21)
[2024-09-27 04:57] LABS: #Basophils 0.06 10x3/uL (0.0-0.2); %Basophils 0.7 % (0.0-1.0); %Eosinophils 2.7 % (0.0-10.0); %Lymphocytes 11.2 % (21.0-51.0); %Monocytes 11.8 % (0.0-10.0); %Neutrophils 72.5 % (42.0-75.0); Hematocrit 28.6 % (36.0-47.0); Hemoglobin 8.4 g/dL (12.0-16.0); Mean Corpuscular HGB CONC 29.4 g/dL (32.0-36.0); Mean Corpuscular Hemoglobin 25.1 pg (27.0-31.0); Mean Corpuscular Volume 85.6 fL (78.0-98.0); Mean Platelet Volume 9.9 fL (7.4-10.4); Platelet Count 370 10x3/uL (130-400); RBC Distribution Width 17.7 % (11.5-14.5); Red Blood Cell (RBC) Count 3.34 mill/uL (4.20-5.40)
[2024-09-27 05:25] LABS: Anion Gap 14 mmol/L (10-20); BUN (Urea Nitrogen) 11 mg/dL (9.8-20.1); Calc. Creatinine Clearance 156 mL/min (70-130); Calcium 8.8 mg/dL (7.8-10.44); Carbon Dioxide 25 mmol/L (22-29); Chloride 106 mmol/L (98-107); Estimated GFR 107; Glucose 96 mg/dL (70-105); Potassium 3.7 mmol/L (3.5-5.1); Sodium 141 mmol/L (136-145)
[2024-09-27] MEDS ORDERED: Ipratropium/Albuterol 3 ML NEB NEB PRN (08:40)
[2024-09-27 09:45] VITALS: BP 125/65; TEMP 98.3
[2024-09-29 14:37] LABS: Adenovirus F 40-41 Not Detected (Not Detected); Astrovirus Not Detected (Not Detected); C. difficile toxin A+B DETECTED (Not Detected); Campylobacter by PCR Not Detected (Not Detected); Cryptosporidium Not Detected (Not Detected); Cyclospora cayetanensis Not Detected (Not Detected); Entamoeba histolytica Not Detected (Not Detected); Enteroaggregative E. coli Not Detected (Not Detected); Enteropathogenic E. coli Not Detected (Not Detected); Enterotoxigenic E. coli Not Detected (Not Detected); Giardia lamblia Not Detected (Not Detected); Norovirus GI-GII Not Detected (Not Detected); Plesiomonas shigelloides Not Detected (Not Detected); Rotavirus A Not Detected (Not Detected); Salmonella Not Detected (Not Detected); Sapovirus Not Detected (Not Detected); Shiga-toxin-producing E coli Not Detected (Not Detected); Shigella/Enteroinvasive E coli Not Detected (Not Detected); Vibrio Not Detected (Not Detected); Vibrio cholerae Not Detected (Not Detected); Yersinia enterocolitica Not Detected (Not Detected)
== END 2024-09-27 11:00 | disposition home or self-care (01) | DRG 386 ==
LOC: ERS 10:37 → 2NO 12:01 → OBSVTOIN 09-25 10:49
PROVIDERS: ADMIT Family Medicine; ATTEND Family Medicine
PROC: 30233N1 Transfusion of Nonautologous Red Blood Cells into Peripheral Vein, Percutaneous Approach (ICD-10-PCS; principal; 2024-09-24)
DX: K51.90 Ulcerative colitis, unspecified, without complications (principal); J84.9 Interstitial pulmonary disease, unspecified; J96.11 Chronic respiratory failure with hypoxia; D50.0 Iron deficiency anemia secondary to blood loss (chronic); E66.9 Obesity, unspecified; Z68.31 Body mass index [BMI] 31.0-31.9, adult; I20.89 Other forms of angina pectoris; Z87.891 Personal history of nicotine dependence; Z90.710 Acquired absence of both cervix and uterus; Z90.49 Acquired absence of other specified parts of digestive tract; Z98.41 Cataract extraction status, right eye; Z98.42 Cataract extraction status, left eye
CPT/HCPCS: 36415; 36430; 71045; 80048; 80053; 83880; 84484; 85025; 85610; 85730; 86850; 86900; 86901; 87177; 87507; 93005; 94640; 94760; 96374; 96375; 96376; G0378; J2272; J2470; J7120; J7620; P9016

== ENCOUNTER 2024-11-02 13:49 | Inpatient (IN) | payer BC ==
[2024-11-02 14:36] LABS: Hematocrit 26.4 % (36.0-47.0); Hemoglobin 7.5 g/dL (12.0-16.0); Mean Corpuscular HGB CONC 28.4 g/dL (32.0-36.0); Mean Corpuscular Hemoglobin 22.7 pg (27.0-31.0); Mean Platelet Volume 9.2 fL (7.4-10.4); Platelet Count 483 10x3/uL (130-400); RBC Distribution Width 18.1 % (11.5-14.5)
[2024-11-02 14:47] LABS: ALT (SGPT) 6 U/L (8-55); AST (SGOT) 13 U/L (5-34); Albumin 2.8 g/dL (3.5-5.0); Alkaline Phosphatase 118 U/L (40-110); Anion Gap 15 mmol/L (10-20); BUN (Urea Nitrogen) 17 mg/dL (9.8-20.1); Bilirubin, Total 0.2 mg/dL (0.2-1.2); Calc. Creatinine Clearance 0 mL/min (70-130); Calcium 9.3 mg/dL (7.8-10.44); Carbon Dioxide 26 mmol/L (22-29); Chloride 98 mmol/L (98-107); Estimated GFR 102; Globulin 4.3 g/dL (2.4-3.5); Glucose 84 mg/dL (70-105); Lipase 6 U/L (8-78); Magnesium 2.2 mg/dL (1.6-2.6); Potassium 4.2 mmol/L (3.5-5.1); Protein, Total 7.1 g/dL (6.0-8.3); Sodium 135 mmol/L (136-145)
[2024-11-02 14:53] LABS: Troponin I Less than 0.010 ng/mL (< 0.028)
[2024-11-02 15:00] LABS: Anisocytosis MODERATE=16-30 cells HPF (0-5); Band 15 % (5-11); Eosinophils 1 % (0-10); Hypochromia SLIGHT = 6-15 cells HPF (0-5); Lymphocytes 8 % (21-51); Monocytes 5 % (0-10); Neutrophil 70 % (42-75); Ovalocytes SLIGHT = 2-5 cells HPF (0-1); Platelet Adequacy Comment Platelets Increased; Polychromasia MODERATE = 3-4 cells HPF (0-2); Stomatocytes SLIGHT = 2-5 cells HPF (0-1); Tear Drops SLIGHT = 2-5 cells HPF (0-1)
[2024-11-02] MEDS ORDERED: Ondansetron PF 4 MG/2 ML Vial ONE (15:35)
[2024-11-02] MEDS ORDERED: Morphine 4 MG/ML VIAL ONE (15:35)
[2024-11-02] MEDS ORDERED: Acetaminophen 325 MG TAB PO PRN (16:11)
[2024-11-02] MEDS ORDERED: traMADol HCl 50 MG TAB PO PRN (16:11)
[2024-11-02] MEDS ORDERED: Ondansetron ODT 4 MG TAB PO PRN (16:11)
[2024-11-02] MEDS ORDERED: Sodium Chloride 0.9% 100 ML ONE (16:22)
[2024-11-02] MEDS ORDERED: cefTRIAXone (ROCEPHIN) 2 GM VIAL ONE (16:22)
[2024-11-02] MEDS ORDERED: Piperacillin/Tazobactam 3.375 GM in Sodium Chloride 0.9% 100 ML IVPB SCH ×3 (16:30→22:00)
[2024-11-02] MEDS ORDERED: Albuterol 2.5 MG (3 mL) NEB NEB PRN (17:34)
[2024-11-02] MEDS: Piperacillin/Tazobactam 3.375 GM in Sodium Chloride 0.9% 100 ML IVPB SCH ×2 (17:59→21:20)
[2024-11-02] MEDS: Pantoprazole 40 MG DR.TAB PO SCH (17:59)
[2024-11-02 18:01] VITALS: BMI 30.7
[2024-11-02] MEDS ORDERED: HYDROcodone/Acetaminophen 5/325 mg Tablet PO PRN (18:16)
[2024-11-02] MEDS: HYDROcodone/Acetaminophen 10/325 mg Tablet PO PRN (18:24)
[2024-11-02] MEDS: Mesalamine DR 400 mg Capsule PO SCH (21:20)
[2024-11-03 01:45] LABS: #Basophils 0.04 10x3/uL (0.0-0.2); %Basophils 0.6 % (0.0-1.0); %Eosinophils 2.9 % (0.0-10.0); %Lymphocytes 12.9 % (21.0-51.0); %Neutrophils 70.8 % (42.0-75.0); Hematocrit 22.3 % (36.0-47.0); Hemoglobin 6.1 g/dL (12.0-16.0); Mean Corpuscular HGB CONC 27.4 g/dL (32.0-36.0); Mean Corpuscular Hemoglobin 22.2 pg (27.0-31.0); Mean Corpuscular Volume 81.1 fL (78.0-98.0); Mean Platelet Volume 8.7 fL (7.4-10.4); Platelet Count 359 10x3/uL (130-400); RBC Distribution Width 17.9 % (11.5-14.5); Red Blood Cell (RBC) Count 2.75 mill/uL (4.20-5.40)
[2024-11-03 05:50] LABS: ALT (SGPT) 5 U/L (8-55); AST (SGOT) 7 U/L (5-34); Albumin 2.3 g/dL (3.5-5.0); Alkaline Phosphatase 97 U/L (40-110); Anion Gap 11 mmol/L (10-20); BUN (Urea Nitrogen) 11 mg/dL (9.8-20.1); Bilirubin, Total 0.1 mg/dL (0.2-1.2); Calc. Creatinine Clearance 137 mL/min (70-130); Calcium 8.2 mg/dL (7.8-10.44); Carbon Dioxide 26 mmol/L (22-29); Chloride 102 mmol/L (98-107); Estimated GFR 104; Globulin 3.2 g/dL (2.4-3.5); Glucose 82 mg/dL (70-105); Potassium 3.9 mmol/L (3.5-5.1); Protein, Total 5.5 g/dL (6.0-8.3); Sodium 135 mmol/L (136-145)
[2024-11-03] MEDS: Pantoprazole 40 MG DR.TAB PO SCH (08:08)
[2024-11-03] MEDS: predniSONE 20 MG TAB PO SCH (08:08)
[2024-11-03] MEDS: Ondansetron PF 4 MG/2 ML Vial IVP PRN (10:03)
[2024-11-03 10:43] LABS: #Basophils 0.06 10x3/uL (0.0-0.2); %Basophils 0.9 % (0.0-1.0); %Eosinophils 2.6 % (0.0-10.0); %Lymphocytes 8.1 % (21.0-51.0); %Monocytes 5.3 % (0.0-10.0); %Neutrophils 82.5 % (42.0-75.0); Hemoglobin 7.8 g/dL (12.0-16.0); Mean Corpuscular HGB CONC 28.9 g/dL (32.0-36.0); Mean Corpuscular Hemoglobin 23.8 pg (27.0-31.0); Mean Corpuscular Volume 82.3 fL (78.0-98.0); Mean Platelet Volume 9.1 fL (7.4-10.4); Platelet Count 388 10x3/uL (130-400); RBC Distribution Width 17.3 % (11.5-14.5); Red Blood Cell (RBC) Count 3.28 mill/uL (4.20-5.40)
[2024-11-03 11:17] LABS: Anisocytosis SLIGHT = 6-15 cells HPF (0-5); Burr Cells SLIGHT = 2-5 cells HPF (0-1); Hypochromia SLIGHT = 6-15 cells HPF (0-5); Platelet Adequacy Comment Platelets Normal; Polychromasia MODERATE = 3-4 cells HPF (0-2); Schistocytes MODERATE= 6-15 cells HPF (0-1); Stomatocytes SLIGHT = 2-5 cells HPF (0-1)
[2024-11-03] MEDS: Acetaminophen 500 MG TAB PO SCH (14:15)
[2024-11-03] MEDS: Lactated Ringer's 1,000 ML IV SCH (14:15)
[2024-11-03] MEDS: Ketorolac Tromethamine 30 MG (1 mL) VIAL IVP SCH ×2 (14:19→17:48)
[2024-11-04] MEDS ORDERED: Sterile Water 10 ML ONE (08:59)
[2024-11-04] MEDS ORDERED: Sincalide 5 MCG VIAL ONE (08:59)
[2024-11-04] MEDS ORDERED: Bacteriostatic Normal Saline 30 ML VIAL ONE (09:00)
[2024-11-04 11:33] VITALS: BP 138/87; TEMP 97.8
== END 2024-11-04 12:25 | disposition home or self-care (01) | DRG 812 ==
LOC: ERS 13:49 → T4-A 16:58 → OBSVTOIN 11-03 10:50
PROVIDERS: ADMIT Internal Medicine; ATTEND Internal Medicine
PROC: 30233N1 Transfusion of Nonautologous Red Blood Cells into Peripheral Vein, Percutaneous Approach (ICD-10-PCS; principal; 2024-11-03)
DX: D62 Acute posthemorrhagic anemia (principal); J96.11 Chronic respiratory failure with hypoxia; K52.9 Noninfective gastroenteritis and colitis, unspecified; E66.9 Obesity, unspecified; E88.09 Other disorders of plasma-protein metabolism, not elsewhere classified; Z90.710 Acquired absence of both cervix and uterus; Z90.49 Acquired absence of other specified parts of digestive tract; Z98.890 Other specified postprocedural states; Z98.41 Cataract extraction status, right eye; Z98.42 Cataract extraction status, left eye; Z87.891 Personal history of nicotine dependence; Z68.30 Body mass index [BMI] 30.0-30.9, adult
CPT/HCPCS: 36415; 36430; 71045; 74177; 76705; 78227; 80053; 83605; 83690; 83735; 83880; 84484; 85025; 86850; 86900; 86901; 87040; 93005; 96361; 96374; 96375; 96376; A9537; G0378; J0696; J1885; J2270; J2405; J2543; J2805; J7120; J7512; P9016